=== PATIENT | male | born 1965 | race Caucasian/White ===

== ENCOUNTER 2018-07-07 02:12 | Emergency (ER) | payer SELFPAY ==
[2018-07-07] MEDS ORDERED: LIDOCAINE 1% 20 ML MDV ONE (02:33)
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
--- NOTE | 2018-07-07 02:44 | ER ---
Nurse's Notes [facility] Name: Tariq Preston II Age: 52 yrs Sex: Male : 1965 Arrival Date: 07/07/2018 Time: 02:15 Bed 19 Private MD: Heath López H Diagnosis: Foreign Body removal of the right hand Presentation: 07/07 02:23 Presenting complaint: Patient states: Fish hook stuck in right hand since yesterday tl2 evening, >24 hours ago. Pt unable to remove it himself. Transition of care: patient was not received from another setting of care. Onset of symptoms was July 04, 2018 at 22:00. Risk Assessment: Do you want to hurt yourself or someone else? Patient reports no desire to harm self or others. Initial Sepsis Screen: Does the patient meet any 2 criteria? No. Patient's initial sepsis screen is negative. Does the patient have a suspected source of infection? No. Patient's initial sepsis screen is negative. Care prior to arrival: None. 02:23 Method Of Arrival: Ambulatory tl2 02:23 Acuity: YESENIA 4 tl2 Triage Assessment: 02:24 General: Appears in no apparent distress. comfortable, Behavior is calm, cooperative, tl2 appropriate for age. Pain: Complains of pain in dorsal aspect of proximal phalanx of right thumb. Neuro: Level of Consciousness is awake, alert, obeys commands, Oriented to person, place, time, situation. Cardiovascular: Denies chest pain. Respiratory: Airway is patent Respiratory effort is even, unlabored, Respiratory pattern is regular, symmetrical. GI: No signs and/or symptoms were reported involving the gastrointestinal system. : No signs and/or symptoms were reported regarding the genitourinary system. Injury Description: Foreign body is located dorsal aspect of proximal phalanx of right thumb is fish hook was sustained 1 day ago. Historical: - Allergies: 02:24 No Known Allergies; tl2 - Home Meds: 02:24 None [Active]; tl2 - PMHx: 02:24 None; tl2 - PSHx: 02:24 None; tl2 - Immunization history:: Adult Immunizations up to date, Last tetanus immunization: up to date. - Social history:: Smoking status: Patient/guardian denies using tobacco. - Ebola Screening: : No symptoms or risks identified at this time. Screenin:26 Abuse screen: Denies threats or abuse. Nutritional screening: No deficits noted. tl2 Tuberculosis screening: No symptoms or risk factors identified. Fall Risk None identified. Assessment: 02:24 General: see triage assessment. tl2 02:46 Reassessment: Patient appears in no apparent distress at this time. Patient and/or tl2 family updated on plan of care and expected duration. Pain level reassessed. Patient is alert, oriented x 3, equal unlabored respirations, skin warm/dry/pink. pt verbalized understanding of discharge instructions, need for follow up, prescription usage and wound care. Vital Signs: 02:24 BP 123 / 92; Pulse 111; Resp 18; Temp 97.7(O); Pulse Ox 98% on R/A; Weight 97.52 kg; tl2 Height 6 ft. 2 in. (187.96 cm); Pain 1/10; 02:46 BP 126 / 95; Pulse 100; Resp 18; Pulse Ox 99% on R/A; tl2 02:24 Body Mass Index 27.60 (97.52 kg, 187.96 cm) 2 ED Course: 02:15 Patient arrived in ED. am2 02:16 Heath López DO is Private Physician. am2 02:16 Dick Jensen MD is Attending Physician. tw4 02:17 [facility] jmm 02:17 Dick Jensen MD is Attending Physician. [facility] 02:22 Jane Patino, MELANY is Primary Nurse. tl2 02:24 Triage completed. tl2 02:24 Arm band placed on right wrist. tl2 02:26 Patient has correct armband on for positive identification. Bed in low position. Call 2 light in reach. Side rails up X 1. Adult w/ patient. 02:43 Joseluis Willson MD is Referral Physician. [facility] 02:46 Assist provider with foreign body removal of a fish hook from right hand using 2 alligator clamps, Set up for procedure. Performed by Pranav CAZARES Dressed with gauze bandage, Patient tolerated well. Patient did not have IV access during this emergency room visit. Administered Medications: 02:35 Drug: Lidocaine (1 %) 20 ml Volume: 20 ml; Route: Infiltration; tl2 02:45 Drug: Doxycycline 100 mg Route: PO; tl2 02:49 Follow up: Response: No adverse reaction; Medication administered at discharge. tl2 Outcome: 02:44 Discharge ordered by . licha 02:46 Discharged to home ambulatory, with family. tl2 02:46 Condition: stable 02:46 Discharge instructions given to patient, family, Instructed on discharge instructions, follow up and referral plans. medication usage, wound care, Demonstrated understanding of instructions, follow-up care, medications, wound care, Prescriptions given X 1. 02:50 Patient left the ED. tl2 Signatures: Pranav Vivar PA PA jmm Knox, Taylor, RN RN tl2 Monica Lomax am2 Dick Jensen MD MD tw4
[2018-07-07] MEDS ORDERED: DOXYCYCLINE 100 MG CAP PO ONE (02:51)
== END 2018-07-07 02:50 | disposition home or self-care (01) ==
LOC: ER 02:12
PROC: 0JCJ0ZZ Extirpation of Matter from Right Hand Subcutaneous Tissue and Fascia, Open Approach (ICD-10-PCS; principal; 2018-07-07)
DX: S61.441A Puncture wound with foreign body of right hand, initial encounter (principal); W26.8XXA Contact with other sharp object(s), not elsewhere classified, initial encounter
CPT/HCPCS: 99283

== ENCOUNTER 2018-09-02 13:34 | Emergency (ER) | payer SELFPAY ==
[2018-09-02] MEDS ORDERED: HYDROCODONE/APAP 10/325 TAB ONE (14:03)
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
[2018-09-02] MEDS ORDERED: ONDANSETRON 4 MG (ODT) TAB ONE (15:28)
[2018-09-02] MEDS ORDERED: MORPHINE 4 MG/ML SYR ONE (15:28)
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
== END 2018-09-02 15:41 | disposition home or self-care (01) ==
LOC: ER 13:34
DX: S42.231A 3-part fracture of surgical neck of right humerus, initial encounter for closed fracture (principal); Y04.2XXA Assault by strike against or bumped into by another person, initial encounter; Y92.410 Unspecified street and highway as the place of occurrence of the external cause
CPT/HCPCS: 96372; 99284

== ENCOUNTER 2020-10-01 23:03 | Emergency (ER) | payer SELFPAY ==
--- NOTE | 2020-10-02 01:04 | ER ---
Nurse's Notes [facility] Name: Tariq Preston II Age: 54 yrs Sex: Male : 1965 Arrival Date: 10/01/2020 Time: 23:09 Bed Waiting Private MD: Diagnosis: Fever, unspecified Presentation: 10/01 23:21 Chief complaint: Patient states: headache, body aches and right sided back pain that em started 3-4 days ago, denies fever. Coronavirus screen: Client denies travel out of the [place] in the last 14 days. Ebola Screen: Patient negative for fever greater than or equal to 101.5 degrees Fahrenheit, and additional compatible Ebola Virus Disease symptoms Patient denies exposure to infectious person. Patient denies travel to an Ebola-affected area in the 21 days before illness onset. No symptoms or risks identified at this time. Initial Sepsis Screen: Does the patient meet any 2 criteria? HR > 90 bpm. No. Patient's initial sepsis screen is negative. Does the patient have a suspected source of infection? No. Patient's initial sepsis screen is negative. Risk Assessment: Do you want to hurt yourself or someone else? Patient reports no desire to harm self or others. Onset of symptoms was October 01, 2020. 23:21 Method Of Arrival: Ambulatory em 23:21 Acuity: YESENIA 4 em Historical: - Home Meds: 23:22 None [Active]; em - PMHx: 23:22 None; em - PSHx: 23:22 None; em - Immunization history:: Adult Immunizations not immunized, Client reports having NOT received the Covid vaccine. - Social history:: Smoking status: Patient reports the use of cigarette tobacco products, smokes one-half pack cigarettes per day. Vital Signs: 23:21 BP 119 / 80; Pulse 102; Resp 18; Temp 97.9; Pulse Ox 99% on R/A; Weight 92.99 kg; em Height 6 ft. 2 in. (187.96 cm); Pain 7/10; 23:21 Body Mass Index 26.32 (92.99 kg, 187.96 cm) em ED Course: 23:09 Patient arrived in ED. es 23:22 Triage completed. em 23:22 Arm band placed on. em Administered Medications: No medications were administered Outcome: 10/02 01:03 Discharge ordered by MD. barrios 01:03 Patient left the ED. sr5 Signatures: Kylee Andrew Edgar, RN RN Vladislav Spear RN RN sr5
[2020-10-02 01:39] VITALS: BP 119/80; TEMP 97.9; O2SAT 99
[2020-10-02] MEDS ORDERED: NA CHLORIDE 0.9% 1,000 ML IV ONE (02:39)
[2020-10-02] MEDS ORDERED: ONDANSETRON 4 MG/2 ML VIAL IV ONE (02:39)
[2020-10-02] MEDS ORDERED: MORPHINE 4 MG/ML SYR IV ONE (02:39)
[2020-10-02 02:54] LABS: Absolute Lymphocytes (CBC) 1.9 K/uL (0.7-4.9); Basophils % 1.2 % (0-1.3); Lymphocytes % 31.2 % (15.3-44.8); MPV 8.5 fL (7.6-11.3); RBC Red Blood Cell Count 4.94 M/uL (4.33-5.43)
[2020-10-02 02:55] LABS: Protime INR 0.96
[2020-10-02 03:06] LABS: BUN Blood Urea Nitrogen 13 mg/dL (7-18); Bicarbonate 30 mmol/L (21-32); Creatine Phosphokinase 69 U/L (39-308); Glucose Level 114 mg/dL (74-106); Magnesium 2.2 mg/dL (1.8-2.4); NT PRO-BNP 26 pg/mL (<125); Potassium 3.7 mmol/L (3.5-5.1); Sodium Level 141 mmol/L (136-145); Troponin I < 0.02 ng/mL (0.0-0.045)
[2020-10-02 03:10] LABS: Urine Blood Negative (Negative); Urine Glucose Negative (Negative); Urine Protein Negative (Negative); Urine Specific Gravity >=1.030 (1.005-1.030); Urine pH 5.5 (5.0-7.0)
[2020-10-02] MEDS ORDERED: NA CHLORIDE 0.9% 1,000 ML ONE (03:13)
[2020-10-02 03:14] LABS: CKMB Creatine Kinase MB < 1.0 ng/mL (1.0-3.6)
[2020-10-02] MEDS ORDERED: ONDANSETRON 4 MG/2 ML VIAL ONE (03:14)
[2020-10-02] MEDS ORDERED: MORPHINE 4 MG/ML SYR ONE (03:14)
[2020-10-02 03:26] LABS: Barbiturates NEGATIVE (NEGATIVE); Benzodiazepines NEGATIVE (NEGATIVE); Cocaine NEGATIVE (NEGATIVE); METHAMPHETAM POSITIVE (NEGATIVE); Methadone NEGATIVE (NEGATIVE); Opiates NEGATIVE (NEGATIVE); Phencyclidine NEGATIVE (NEGATIVE); THC Cannibis POSITIVE (NEGATIVE)
--- NOTE | 2020-10-02 07:11 | RAD REPORT ---
EXAM DESCRIPTION: RAD - Chest Pa And Lat (2 Views) - 10/02/2020 2:45 am CLINICAL HISTORY: chest pain COMPARISON: None TECHNIQUE: Frontal and lateral views of the chest were obtained. FINDINGS: The lungs are clear of a suspicious mass or infiltrate. Nipple shadows overlie the each alivia ng base. No significant failure or volume overload finding. There is mild prominence of the interstit ial pattern believed to be baseline. Heart size is normal and central vasculature is within normal limits. No pleural effusion or pneumothorax seen. No acute bony finding noted. No aortic abnormali ty. IMPRESSION: No acute cardiopulmonary process.
--- NOTE | 2020-10-02 12:55 | EKG ---
Test Date: 2020-10-02 Test Time: 02:25:55 Tree Specialist: CRISTEL MEASUREMENT RESULTS: Intervals: Rate: 79 SD: 134 QRSD: 88 QT: 386 QTc: 442 Labelle: P: 32 SD: 134 QRS: -15 T: -14 INTERPRETIVE STATEMENTS: Normal sinus rhythm Voltage criteria for left ventricular hypertrophy Inferior infarct, age undetermined Abnormal ECG No previous ECG available for comparison Electronically Signed On 10-02-20 12:53:42 CDT by Romeo Valencia
== END 2020-10-02 01:03 | disposition home or self-care (01) ==
LOC: ER 23:03
DX: R07.9 Chest pain, unspecified (principal); F19.10 Other psychoactive substance abuse, uncomplicated; F17.210 Nicotine dependence, cigarettes, uncomplicated
CPT/HCPCS: 36415; 71046; 80048; 80307; 81003; 82550; 82553; 83735; 83880; 84484; 85025; 85610; 85730; 93005; 99281; J2405; J7030

== ENCOUNTER 2022-05-31 03:30 | Emergency (ER) | payer OTHER, SELFPAY ==
--- OUTSIDE RECORDS SUMMARY | 2022-05-31 03:35 | XMS REPORT | Continuity of Care Document ---
:1965 Author Organization [facility] t Address [address] [place] [address] Care Team Providers Name Role Phone Sara Ludwig Primary Care Physician Doctor Unassigned, [place] Attending Clinician Unavailable Evelyn Carrizales Attending Clinician Unavailable Sara Ludwig Attending Clinician Lab, Ang - Db Attending Clinician Unavailable SARA ONTIVEROS Attending Clinician Unavailable VICKIE KEATING Attending Clinician Unavailable TYRONE SHEPARD Attending Clinician Unavailable NUSRAT FRIEND Attending Clinician Unavailable Payers Payer Name Policy Type Policy Number Effective Date Expiration Date S ource Problems Condition Condition Condition Status Onset Resolution Last Treating Co mments Source Name Details Category Date Date Treatment Clinician Date No known No known Disease Unive rs active active ity of problems problems [facility] Allergies, Adverse Reactions, Alerts Allergy Allergy Status Severity Reaction(s) Onset Inactive Treating Comm ents Source Name Type Date Date Clinician NO KNOWN Drug Active Univers ALLERGIE Class ity of S [facility] Social History Social Habit Start Date Stop Date Quantity Comments Source Exposure to 2022-04-05 2022-04-15 Not sure [facility] SARS-CoV-2 00:00:00 13:14:00 [facility] (event) [place] Tobacco use and 2022-04-10 2022-04-10 Smokeless tobacco Un iversity of exposure 00:00:00 00:00:00 non-user [facility] Alcohol intake 2022-04-10 2022-04-10 Lifetime University of 00:00:00 00:00:00 non-drinker [place] [facility] (finding) Branch History of 2021-11-01 Cigarette Smoker Universi ty of tobacco use 00:00:00 [facility] Tobacco Comment 2021-10-24 2021-10-24 Patient trying to Un iversity of 00:00:00 00:00:00 quit, currently [place] [facility] ical smokes 1 Branch cigarette/ day. Sex Ass[birth year] Universit y of 00:00:00 00:00:00 [facility] Smoking Status Start Date Stop Date Source Ex-smoker 2022-04-10 00:00:00 2022-04-10 00:00:00 Universi ty of [facility] Smokes tobacco daily 2021-10-24 00:00:00 Univers ity of [facility] Medications Ordered Filled Start Stop Current Ordering Indication Dosage Frequency Signature Comments Components Source Medication Medication Date Date Medication? Clinician (SIG) Name Name ergocalcife 0 Yes [id number] Take 1 Univers rol, 1-11 capsule by ity of vitamin d2, 00:00: mouth [place] 1,250 mcg 00 weekly. Medical (50,000 Branch unit) capsule ergocalcife 2022-0 Yes [id number] Take 1 Univers rol, 1-11 capsule by ity of vitamin d2, 00:00: mouth [place] 1,250 mcg 00 weekly. Medical (50,000 Branch unit) capsule ergocalcife 2022-0 Yes [id number] Take 1 Univers rol, 1-11 capsule by ity of vitamin d2, 00:00: mouth [place] 1,250 mcg 00 weekly. Medical (50,000 Branch unit) capsule ergocalcife 2022-0 Yes [id number] Take 1 Univers rol, 1-11 capsule by ity of vitamin d2, 00:00: mouth [place] 1,250 mcg 00 weekly. Medical (50,000 Branch unit) capsule tiZANidine Yes [id number] 4mg Take 1 Univers 4 mg tablet 7-21 tablet by ity of 00:00: mouth 3 00 (three) Medical times Branch daily as needed for Pain (scale 7-10). naproxen Yes [id number] 500mg Take 1 U nivers 500 mg 7-21 tablet by ity of tablet 00:00: mouth 2 00 (two) Medical times Branch daily as needed for Pain (scale 4-6) (use spraignly due to side effects). tiZANidine 2022-0 Yes [id number] 4mg Take 1 Univers 4 mg tablet 7-21 tablet by ity of 00:00: mouth 3 (three) Medical times Branch daily as needed for Pain (scale 7-10). naproxen 2022-0 Yes [id number] 500mg Take 1 U nivers 500 mg 7-21 tablet by ity of tablet 00:00: mouth (two) Medical times Branch daily as needed for Pain (scale 4-6) (use spraignly due to side effects). tiZANidine 2-0 Yes [id number] 4mg Take 1 Univers 4 mg tablet 7-21 tablet by ity of 00:00: mouth (three) Medical times Branch daily as needed for Pain (scale 7-10). naproxen 2022-0 Yes [id number] 500mg Take 1 U nivers 500 mg 7-21 tablet by ity of tablet 00:00: mouth (two) Medical times Branch daily as needed for Pain (scale 4-6) (use spraignly due to side effects). tiZANidine 2-0 Yes [id number] 4mg Take 1 Univers 4 mg tablet 7-21 tablet by ity of 00:00: mouth (three) Medical times Branch daily as needed for Pain (scale 7-10). naproxen 2022-0 Yes [id number] 500mg Take 1 U nivers 500 mg 7-21 tablet by ity of tablet 00:00: mouth (two) Medical times Branch daily as needed for Pain (scale 4-6) (use spraignly due to side effects). tiZANidine 2-0 Yes [id number] 4mg Take 1 Univers 4 mg tablet 7-21 tablet by ity of 00:00: mouth 3 (three) Medical times Branch daily as needed for Pain (scale 7-10). naproxen 2022-0 Yes [id number] 500mg Take 1 U nivers 500 mg 7-21 tablet by ity of tablet 00:00: mouth (two) Medical times Branch daily as needed for Pain (scale 4-6) (use spraignly due to side effects). tiZANidine 2021-0 Yes [id number] 4mg Take 1 Univers 4 mg tablet 7-21 tablet by ity of 00:00: mouth 3 (three) Medical times Branch daily as needed for Pain (scale 7-10). naproxen 2021-0 Yes [id number] 500mg Take 1 U nivers 500 mg 7-21 tablet by ity of tablet 00:00: mouth 2 (two) Medical times Branch daily as needed for Pain (scale 4-6) (use spraignly due to side effects). tiZANidine 2021-0 Yes [id number] 4mg Take 1 Univers 4 mg tablet 7-21 tablet by ity of 00:00: mouth 3 (three) Medical times Branch daily as needed for Pain (scale 7-10). naproxen 2021-0 Yes [id number] 500mg Take 1 U nivers 500 mg 7-21 tablet by ity of tablet 00:00: mouth 2 (two) Medical times Branch daily as needed for Pain (scale 4-6) (use spraignly due to side effects). tiZANidine 2021-0 Yes [id number] 4mg Take 1 Univers 4 mg tablet 7-21 tablet by ity of 00:00: mouth 3 (three) Medical times Branch daily as needed for Pain (scale 7-10). naproxen 2021-0 Yes [id number] 500mg Take 1 U nivers 500 mg 7-21 tablet by ity of tablet 00:00: mouth 2 (two) Medical times Branch daily as needed for Pain (scale 4-6) (use spraignly due to side effects). methylPREDN 0 2021- No [id number] Take by Univers ISolone 4 10-24 07-28 mouth ity of mg tablets 00:00: 04:59 SEE-INSTRU [place] 00 :00 CTIONS for Medical 6 days. Branch follow package directions Vital Signs Vital Name Observation Time Observation Value Comments Source Systolic blood 2022-04-10 20:30:00 135 mm[Hg] Univer sity of pressure [facility] Diastolic blood 2022-04-10 20:30:00 88 mm[Hg] Unive rsity of [facility] Heart rate 2022-04-10 20:30:00 88 /min Universi ty of [place] [facility] [place] Body temperature 2022-04-10 20:30:00 36.78 Angelika [facility] ersity of [place] [facility] [place] Respiratory rate 2022-04-10 20:30:00 20 /min Univ ersity of [place] [facility] [place] Body height 2022-04-10 20:30:00 188 cm Universi ty of [place] [facility] [place] Body weight 2022-04-10 20:30:00 105.87 kg Universi ty of [place] [facility] BMI 2022-04-10 20:30:00 29.97 kg/m2 Universi ty of [facility] Oxygen saturation in 2022-04-10 20:30:00 96 /min University of Arterial blood by [facility] Pulse oximetry Branch Respiratory rate 2021-10-24 16:11:00 18 /min [facility] ersity of [place] [facility] [place] Body height 2021-10-24 16:11:00 188 cm Universi ty of [place] [facility] [place] Body weight 2021-10-24 16:11:00 98.657 kg Universi ty of [place] [facility] BMI 2021-10-24 16:11:00 27.93 kg/m2 Universi ty of [place] [facility] [place] Oxygen saturation in 2021-10-24 16:11:00 97 /min University of Arterial blood by [facility] Pulse oximetry Branch Systolic blood 2021-10-24 16:11:00 123 mm[Hg] Univer sity of pressure [facility] Diastolic blood 2021-10-24 16:11:00 85 mm[Hg] Unive rsity of pressure [facility] Heart rate 2021-10-24 16:11:00 75 /min Universi ty of [place] [facility] [place] Body temperature 2021-10-24 16:11:[address] [facility] Procedures Procedure Date / Time Performed Performing Clinician Sourc e REFERRAL- 2022-05-06 06:01:00 Doctor Unassigned, No [facility] REQUEST/RESPONSE Name [facility] Branch COMP. METABOLIC PANEL 2022-04-15 19:35:00 Sara Ontiveros [facility] ([id number]) Medical Branch CBC WITH DIFF 2022-04-15 19:35:00 Sara Ontiveros [place] [facility] Encounters Start End Encounter Admission Attending Care Care Encounter Source Date/Time Date/Time Type Type Clinicians Facility Department ID 2022-05-06 2022-05-06 Orders Doctor SHANE [id number] Univers 00:00:00 00:00:00 Only Unassigned, LAURA 350.1.13.10 ity of [place] [facility] 4.2.7.2.686 Alexander as [id number] [facility] 009 [place] 2022-04-30 2022-04-30 Telephone FATEMEH Carrizales 1.2.840.114 [id number] Univers 00:00:00 00:00:00 Evelyn BARTONY 350.1.13.10 [place] [id number] [facility] 086 [place] 2022-04-25 2022-04-25 Telephone Rama [facility] [id number] Univers 00:00:00 00:00:00 Sara HEALTH 350.1.13.10 it y of [place] 4.2.7.2.686 Alexander as WOODY?BLEA [id number] [facility] 044 [place] MEDICAL OFFICE [facility] 2022-04-15 2022-04-15 Laboratory Engineer Lab, Ang - Db [facility] 1.2.840.1 [id number] Univers 13:15:00 13:30:02 Visit Sara Ontiveros HEALTH 350.1.13.10 ity of [place] 4.2.7.2.686 Alexander as WOODY?BLEA [id number] [facility] [address] [facility] OFFICE [facility] 2022-04-15 2022-04-15 Outpatient R RAMA [facility] [id number] Univers 13:15:00 13:15:00 SARA ity [facility] 2022-04-10 2022-04-10 [facility] [id number] Univers 14:30:00 15:28:58 SARA ity [facility] 2022-04-10 2022-04-10 [facility] [id number] Univers 14:30:00 15:28:58 Visit Sara HEALTH 350.1.13.10 it y of [place] 4.2.7.2.686 Alexander as WOODY?BLEA [id number] [facility] 044 [place] MEDICAL OFFICE BUILDING 2021-12-10 2021-12-10 Outpatient R ZURI [facility] [id number] Univers 08:45:00 08:45:00 VICKIE jerzy [facility] 2021-11-29 2021-11-29 Outpatient R DEVYN [facility] [id number] Univers 12:30:00 12:30:00 TYRONE jerzy [facility] 2021-11-27 2021-11-27 Outpatient R PHUC [facility] [id number] Univers 11:30:00 11:30:00 ity [facility] 2021-11-19 2021-11-19 Outpatient R PHUC [facility] [id number] Univers 14:00:00 [facility]00[facility] 2021-11-05 Outpatient R PHUC [facility] [id number] Univers 14:30:00 [facility]:30:[facility] 2021-10-24 2021-10-24 [facility] [id number] Univers 13:00:00 23:59:00 SARA [facility] 2021-10-24 2021-10-24 Laboratory Engineer Lab, Ang - [facility] 1.2.840.1 [id number] Univers 11:45:00 12:00:00 Visit Sara Ontiveros 350.1.13.10 ity [facility] 4.2.7.2.686 Alexander as WOODY?BLEA [id number] Sd peewee MOODY [address] [place] [address] MEDICAL OFFICE BUILDING 2021-10-24 2021-10-24 [facility] [id number] Univers 11:00:00 11:44:18 SARA [facility] 2021-10-24 2021-10-24 Office [facility] [id number] Univers 11:00:00 11:44:18 Visit Sara Nubee 350.1.13.10 it y of [place] 4.2.7.2.686 Alexander as WOODY?BLEA [id number] Sd peewee [address] OFFICE [facility] 2021-10-17 2021-10-17 Outpatient R RAMA [facility] [id number] Univers 11:30:00 11:30:00 SARA itjerzy [facility] 2021-10-15 2021-10-15 Outpatient R FRIENDNUSRAT [facility] [id number] Univers 16:30:00 16:30:00 ity [facility] 2021-10-15 2021-10-15 Outpatient R FRIENDNUSRAT [facility] [id number] Univers 16:30:00 16:30:00 [facility] 2021-10-11 2021-10-11 Telephone [facility] [id number] Univers 00:00:00 00:00:00 Sara HEALTH 350.1.13.10 it y of [place] 4.2.7.2.686 Alexander as WOODY?BLEA [id number] [address] OFFICE [facility] 2021-10-09 2021-10-09 Telephone [facility] [id number] Univers 00:00:00 00:00:00 Sara HEALTH 350.1.13.10 it y of [place] 4.2.7.2.686 Alexander as WOODY?BLEA [id number] [address] OFFICE [facility] 2021-10-03 2021-10-03 Office [facility] [id number] Univers 10:30:00 11:43:54 Visit Sara HEALTH 350.1.13.10 it y of [place] 4.2.7.2.686 Alexander as WOODY?BLEA [id number] [address] OFFICE [facility] 2021-10-03 2021-10-03 Outpatient R RAMA [facility] [id number] [facility] 10:30:00 11:43:54 SARASKY block [facility] 2021-10-03 2021-10-03 Outpatient Sayda ONTIVEROS [facility] [id number] [facility] 10:30:00 11:43:54 SARA ity of [facility] 2021-10-03 2021-10-03 Telephone Rama [facility] [id number] Univers 00:00:00 00:00:00 Sara LOMELI 350.1.13.10 it jerzy montano [place] 4.2.7.2.686 Alexander as WOODY?BLEA [id number] [address] MEDICAL OFFICE BUILDING Results Test Description Test Time Test Comments Results Result Comments Source CBC WITH DIFF 2022-04-15 23:03:33 Test Item Value Reference Range Interpretation Comme nts WBC (test code = 6690-2) See_Comment [A utomated message] The system which generated this result transmitted ref erence range: 4.20 - 10.70 10*3/?L . The reference range was not u sed to interpret this result as normal/abnormal. RBC (test code = 789-8) See_Comment [Au tomated message] The system which generated this result transmitted ref erence range: 4.26 - 5.52 10*6/?L. The reference range was not u sed to interpret this result as normal/abnormal. HGB (test code = 718-7) 16.2 g/dL 12.2-16.4 HCT (test code = 4544-3) 47.0 % 38.4-49.3 MCV (test code = 787-2) 89.4 fL 81.7-95.6 MCH (test code = 785-6) 30.8 pg 26.1-32.7 MCHC (test code = 786-4) 34.5 g/dL 31.2-35.0 RDW-SD (test code = 42.0 fL 38.5-51.6 77942-4) RDW-CV (test code = 12.9 % 12.1-15.4 788-0) PLT (test code = 777-3) See_Comment [Au tomated message] The system which generated this result transmitted ref erence range: 150 - 328 10*3/?L. The reference range was not u sed to interpret this result as normal/abnormal. MPV (test code = 14305-5) 10.5 fL 9.8-13.0 NRBC/100 WBC (test code = See_Comment [ Automated message] The system [id number]) which generated this result transmitted ref erence range: 0.0 - 10.0 /100 WBC s. The reference range was not u sed to interpret this result as normal/abnormal. NRBC x10^3 (test code = See_Comment [Au tomated message] The system [id number]) which generated this result transmitted ref erence range: 10*3/?L. The re ference range was not used to int erpret this result as normal/abnor mal. GRAN MAT (NEUT) % (test 50.3 % code = 770-8) IMM GRAN % (test code = 0.20 % 7883188430) LYMPH % (test code = 35.8 % 736-9) MONO % (test code = 8.4 % 5905-5) EOS % (test code = 713-8) 3.7 % BASO % (test code = 1.6 % 706-2) GRAN MAT x10^3(ANC) (test 2.89 10*3/uL 1.99-6.95 code = 7857987062) IMM GRAN x10^3 (test code 0.00-0.06 = 2377523940) LYMPH x10^3 (test code = 2.05 10*3/uL 1.09-3.23 731-0) MONO x10^3 (test code = 0.48 10*3/uL 0.36-1.02 742-7) EOS x10^3 (test code = 0.21 10*3/uL 0.06-0.53 711-2) BASO x10^3 (test code = 0.09 10*3/uL 0.01-0.09 704-7) [id number]-15 22:48:08 Test Item Value Reference Range Interpretation Comments NA (test code = 138 mmol/L 135-145 8202240917) K (test code = 4.6 mmol/L 3.5-5.0 9843279484) CL (test code = 104 mmol/L 98-108 7252055420) CO2 TOTAL (test code = 27 mmol/L 23-31 5792683950) AGAP (test code = 2-16 3805201309) BUN (test code = 11 mg/dL 7-23 1754185214) GLUCOSE (test code = 97 mg/dL 70-110 5850164544) CREATININE (test code = 1.07 mg/dL 0.60-1.25 9688716298) TOTAL BILI (test code = 0.6 mg/dL 0.1-1.3 8011018183) CALCIUM (test code = 8.9 mg/dL 8.6-10.6 3438412018) T PROTEIN (test code = 7.5 g/dL 6.3-8.2 1607691125) ALBUMIN (test code = 4.5 g/dL 3.5-5.0 9650455455) ALK PHOS (test code = 107 U/L 34-122 4136982306) ALTv (test code = 55 U/L 5-50 H 1742-6) AST(SGOT) (test code = 42 U/L 13-40 H 9653092536) eGFR (test code = mL/min/1.73m2 6647595048) MAIKOL (test code = MAIKOL) Association of Glomerular Filtration Rate (GFR) and Staging of Kidney Disease* + --+ --+ ------+| GFR (mL/min/1.73 m2) ?| With Kidney Damage ?| ?Without Kidney Damage+ --------+ --------+ +| ?>90 ?| ?Stage one ?| ? Normal ?+ ---+ ---+ -------+| ?60-89 ?| ?Stage two ?| ? Decreased GFR ? + --+ --+ ------+| ?30-59 ?| ?Stage three ?| ? Stage three ? + --+ --+ ------+| ?15-29 ?| ?Stage four ? | ? Stage four ?+ ---+ ---+ -------+| ?<15 (or dialysis) ? ?| ?Stage five ? | ? Stage five ?+ ---+ ---+ -------+ *Each stage assumes the associated GFR level has been in effect for at least three months. ?Stages 1 to 5, with or without kidney disease, indicate chronic kidney disease. Notes: Determination of stages one and two (with eGFR >59mL/min/1.73 m2) requires estimation of kidney damage for at least three months as defined by structural or functional abnormalities of the kidney, manifested by either:Pathological abnormalities or Markers of kidney damage (including abnormalities in the composition of the blood or urine or abnormalities in imaging tests). Lab Interpretation Abnormal (test code = 54167-4) [facility] [id number] 07:58:05 Test Item Value Reference Range Interpretation Comments CHOLESTEROL (test 214 MG/DL <200 H code = 2210) TRIGLYCERIDES (test 123 MG/DL <150 code = 2232) HDL CHOLESTEROL (test 34 MG/DL >39 L code = 2220) CALC LDL CHOL (test 155 MG/DL <100 H NOTE: C ALCULATED LDL code = 2237) IS BASED ON ROSY-DENISE METHOD WHICHINCLUDES ADJUSTABLE TRIGLYCERIDE:VL DL CHOLESTEROL RAT IO.THIS FACTOR VARIES B Y MEASURED TRIGLY CERIDE AND NON-HDLCHOL ESTEROL CONCENTRATIONS WITH INCREASED CALCU LATED LDL SEENIN HIGH ER TRIGLYCERIDE OR LOWER NON-HDL SPECIME NS. FOR MOREINFORMATION , SEE CLIENT ANNOUNCE MENT AT [email or web address] RISK RATIO LDL/HDL 4.56 RATIO <3.55 H (test code = 2238) COMPREHENSIVE METABOLIC [id number] 07:58:05 Test Item Value Reference Range Interpretation Comments GLUCOSE (test code = 93 MG/DL 70-99 2216) BUN (test code = 13 MG/DL 6-20 2207) CREATININE (test 1.08 MG/DL 0.80-1.40 code = 2214) eGFR (2020 CKD-EPI) 82 ML/MIN/1.73 >60 (test code = 04280) CALC BUN/CREAT (test 12 RATIO 6-28 code = 2235) SODIUM (test code = 141 MEQ/L 743-630 4421) POTASSIUM (test code 4.1 MEQ/L 3.5-5.4 = 2227) CHLORIDE (test code 105 MEQ/L 95-107 = 2214) CARBON DIOXIDE (test 22 MEQ/L 19-31 code = 2206) CALCIUM (test code = 9.1 MG/DL 8.5-10.5 2208) PROTEIN, TOTAL (test 7.0 G/DL 6.1-8.3 code = 2229) ALBUMIN (test code = 4.0 G/DL 3.5-5.2 2200) CALC GLOBULIN (test 3.0 G/DL 1.9-3.7 code = 2240) CALC A/G RATIO (test 1.3 RATIO 1.0-2.6 code = 2234) BILIRUBIN, TOTAL 0.4 MG/DL See_Comment [Automated message] (test code = 2207) The syste m which generated this result transmit madelyn reference range : <=1.2. The refe rence range was not u sed to interpret th is result as normal/abnormal . ALKALINE PHOSPHATASE 85 U/L 40-121 (test code = 2203) AST (test code = 15 U/L 9-50 2217) ALT (test code = 20 U/L 5-50 2218) [id number] 06:51:08 Test Item Value Reference Range Interpretation Comments RPR RESULT (test code = NON-REACTIVE NON-REACTIVE 3501) RPR TITER (test code = 3500) NOT INDIC. TITER NOT INDIC. HIV 1/2 4TH GEN, RFLX [id number] 05:47:42 Test Item Value Reference Range Interpretation Comments HIV 1/2 4TH GEN, RFLX CONF (test NON-REACTIVE NON-REACTIVE code = 3514) HEPATITIS PANEL, [id number] 05:47:42 Test Item Value Reference Range Interpretation Comments HEPATITIS A IgM (test NON-REACTIVE NON-REACTIVE code = 92645) HEPATITIS B CORE IgM NON-REACTIVE NON-REACTIVE (test code = 4644) HEPATITIS B SURF AG NON-REACTIVE NON-REACTIVE (test code = 2739) HEPATITIS C ANTIBODY NON-REACTIVE NON-REACTIVE (test code = 4675) INTERPRETATION (NOTE) Hepatitis A HEPATITIS A: (test serology shows no code = 2552) evidence of acu te hepatitis A. INTERPRETATION (NOTE) Hepatitis B HEPATITIS B: (test serology shows no code = 93254) evidence of ac [place] hepatitis B and no indication of exposure to hepatitis B vir us in the previous si xto eight months. INTERPRETATION (NOTE) Hepatitis C HEPATITIS C: (test serology shows no code = 58202) evidence of ex posure to hepatitisC v irus at this time. I t can take up to 12 m onths after exposure tothe hepatitis C vir us for antibodies to become detectab le in the blood in ce rtain patients. UNLES S OTHERWISE INDIC ATED, ALL TESTING PERFORMED [facility], [place] [facility] [place] [address] MANDIE OAKLEY DIRECTOR: Nubia WILEYIA NUMBER [id number] [place] [id number] CBC W/AUTO DIFF WITH [id number] 03:42:47 Test Item Value Reference Range Interpretation Comments WBC (test code = 5.9 K/UL 3.5-11.0 1001) RBC (test code = 5.20 M/UL 4.50-6.10 1002) HEMOGLOBIN (test code 15.9 G/DL 13.5-17.0 = 1003) HEMATOCRIT (test code 45.1 % 40.0-51.0 = 1004) MCV (test code = 86.7 fL 80.0-99.0 1005) MCH (test code = 30.6 PG 25.0-33.0 1006) MCHC (test code = 35.3 G/DL 31.0-36.0 1007) RDW (test code = 13.0 % 11.5-15.0 1038) NEUTROPHILS (test 46.3 % code = 1008) LYMPHOCYTES (test 40.4 % code = 1010) MONOCYTES (test code 7.7 % = 1011) EOSINOPHILS (test 4.1 % code = 1012) BASOPHILS (test code 1.2 % = 1013) IMMATURE GRANULOCYTES 0.3 % (test code = 1036) NUCLEATED RBCS (test 0.0 /100 WBC'S See_Comment [Aut omated code = 1065) message] The sy stem which generated this result transmitted reference range : 0.0. The refere nce range was not u sed to interpret th is result as normal/abnormal . PLATELET COUNT (test 296 K/UL 130-400 code = 1015) ABSOLUTE NEUTROPHILS 2.71 K/UL 1.50-7.50 (test code = 1066) ABSOLUTE LYMPHOCYTES 2.37 K/UL 1.00-4.00 (test code = 1067) ABSOLUTE MONOCYTES 0.45 K/UL 0.20-1.00 (test code = 1068) ABSOLUTE EOSINOPHILS 0.24 K/UL 0.00-0.50 (test code = 1040) ABSOLUTE BASOPHILS 0.07 K/UL 0.00-0.20 (test code = 1069) ABS IMMATURE 0.02 K/UL 0.00-0.10 GRANULOCYTES (test code = 1020) ABS NUCLEATED RBCS 0.00 K/UL 0.00-0.11 (test code = 00299)"
--- NOTE | 2022-05-31 05:20 | EDPHYS ---
Physician Documentation [facility] Name: Tariq Preston II Age: 56 yrs Sex: Male : 1965 Arrival Date: 05/31/2022 Time: 03:34 Bed 8 Private MD: ED Physician Ari Hayden HPI: 05/31 03:58 This 56 yrs old Male presents to ER via Ambulatory with complaints of Foreign bs3 Body In Throat, Flank Pain. 03:58 56yo m states he has throat discomfort worse when laying flat. It started 5 days ago bs3 when he fell asleep with a dip pellet in his throat and he feels like he swallowed it. He thinks it sometimes goes down and then comes up, it causes him to have coughing fits. Denies fever chills, nausea, or vomiting. He does note that he had a choking/coughing fit tonight adn thinks he broke one of his ribs on the left. . Historical: - Allergies: 03:40 No Known Allergies; lg3 - Home Meds: 03:40 None [Active]; lg3 - PMHx: 03:40 None; lg3 - PSHx: 03:40 None; lg3 - Immunization history:: Adult Immunizations up to date, Client reports receiving the 2nd dose of the Covid vaccine, Flu vaccine is not up to date. - Social history:: Smoking status: Reported history of juuling and/or vaping. Patient/guardian denies using alcohol, street drugs. ROS: 03:58 Constitutional: Negative for fever, chills bs3 03:58 All other systems are negative. Exam: 03:58 Constitutional: This is a well developed, well nourished patient who is awake, alert, bs3 and in no acute distress. Head/Face: Normocephalic, atraumatic. Eyes: Pupils equal round and reactive to light, extra-ocular motions intact. Lids and lashes normal. ENT: mmm, no posterior phyarngeal erythema Neck: Trachea midline, no thyromegaly, no neck stiffness Chest/axilla: Normal chest wall appearance and motion. tender on left side of chest, no crepitus Cardiovascular: Regular rate and rhythm with a normal S1 and S2. symmetric pulses in upper extremities Respiratory: Lungs have equal breath sounds bilaterally, clear to auscultation, no respiratory distress Abdomen/GI: Soft, non-tender, no rebound or guarding MS/ Extremity: Pulses equal, no cyanosis. Neurovascular intact. Full, normal range of motion. Neuro: Awake and alert, GCS 15, oriented to person, place, time, and situation. Cranial nerves II-XII grossly intact. Motor strength 5/5 in all extremities. Sensory grossly intact. Vital Signs: 03:37 BP 144 / 98; Pulse 82; Resp 17 S; Temp 97.6; Pulse Ox 99% on R/A; Weight 104.33 kg; lg3 Height 6 ft. 2 in. (187.96 cm) (R); Pain 6/10; 04:55 BP 126 / 96; Pulse 73; Resp 19; Pulse Ox 95% on R/A; kd3 03:37 Body Mass Index 29.53 (104.33 kg, 187.96 cm) lg3 MDM: 03:49 Patient medically screened. bs3 03:58 Differential diagnosis: possible esophageal or tracheal fb, but pt is well appearing bs3 here, no coughing, no resp distress, possible rib fx, possible irritation from soemthing else causing coughing, will do ct soft tissue neck to eval for fb, will get xr to r/o pneumothorax and large rib fracture. will observe. 05:18 Data reviewed: vital signs, nurses notes. ED course: pt with non diagnostic workup, ct bs3 reviewed by me negative for obvious fb, xr neg for pneumothorax as inter by myself. Advised ent f/u. 05:20 ED course: per radiology no acute pathology on ct. bs3 05/31 03:49 Order name: Chest Pa And Lat (2 Views) XRAY bs3 05/31 04:06 Order name: Soft Tissue Neck Wo Contr EDMS Administered Medications: No medications were administered Disposition Summary: 05/31/22 05:19 Discharge Ordered Location: Home bs3 Problem: new bs3 Symptoms: are resolved bs3 Condition: Stable bs3 Diagnosis - Pain in throat bs3 Followup: bs3 - With: Lily Gonzalez MD - When: 2 - 3 days - Reason: Recheck today's complaints Discharge Instructions: - Discharge Summary Sheet bs3 - Sore Throat, [id number] bs3 Forms: - Medication Reconciliation Form bs3 - Thank You Letter bs3 - Antibiotic Education bs3 - Prescription Opioid Use bs3 Signatures: Dispatcher [employer] EDMS Otilia Barajas, RN RN lg3 Ari Hayden MD MD bs3 Corrections: (The following items were deleted from the chart) 04:06 03:57 Soft Tissue Neck W/Contr+CT.RAD.BRZ ordered. EDMS EDMS
--- NOTE | 2022-05-31 05:20 | ER ---
Nurse's Notes [facility] Name: Tariq Preston II Age: 56 yrs Sex: Male : 1965 Arrival Date: 05/31/2022 Time: 03:34 Bed 8 Private MD: Diagnosis: Pain in throat Presentation: 05/31 03:37 Chief complaint: Patient states: about 4-5 days ago i fell asleep with dip in my mouth lg3 and i inhaled it and its stuck in my throat. now i have a cough that wont go away. im coughing so hard that now my ribs hurt. Coronavirus screen: Client denies travel out of the [place] in the last 14 days. At this time, the client does not indicate any symptoms associated with coronavirus-19. Ebola Screen: No symptoms or risks identified at this time. Initial Sepsis Screen: Does the patient meet any 2 criteria? No. Patient's initial sepsis screen is negative. Does the patient have a suspected source of infection? No. Patient's initial sepsis screen is negative. Risk Assessment: Do you want to hurt yourself or someone else? Patient reports no desire to harm self or others. Onset of symptoms is unknown. 03:37 Method Of Arrival: Ambulatory lg3 03:37 Acuity: YESENIA 3 lg3 Triage Assessment: 03:40 General: Appears in no apparent distress. Behavior is calm, cooperative. Pain: lg3 Complains of pain in left rib area. EENT: No deficits noted. No signs and/or symptoms were reported regarding the EENT system. Neuro: No deficits noted. Heard Agitation-Sedation Scale (RASS): Level of Consciousness is awake, alert, obeys commands, Oriented to person, place, time, situation. Cardiovascular: No deficits noted. Denies chest pain, Capillary refill < 3 seconds Clubbing of nail beds is absent JVD is absent Patient's skin is warm and dry. Respiratory: No deficits noted. Airway is patent Respiratory effort is even, unlabored, Respiratory pattern is regular, symmetrical. GI: No deficits noted. No signs and/or symptoms were reported involving the gastrointestinal system. : No deficits noted. No signs and/or symptoms were reported regarding the genitourinary system. Derm: No deficits noted. No signs and/or symptoms reported regarding the dermatologic system. Skin is intact, is healthy with good turgor, Skin is dry, Skin is normal. Musculoskeletal: No deficits noted. No signs and/or symptoms reported regarding the musculoskeletal system. Circulation, motion, and sensation intact. Range of motion: intact in all extremities. Historical: - Allergies: 03:40 No Known Allergies; lg3 - Home Meds: 03:40 None [Active]; lg3 - PMHx: 03:40 None; lg3 - PSHx: 03:40 None; lg3 - Immunization history:: Adult Immunizations up to date, Client reports receiving the 2nd dose of the Covid vaccine, Flu vaccine is not up to date. - Social history:: Smoking status: Reported history of juuling and/or vaping. Patient/guardian denies using alcohol, street drugs. Screenin:56 [facility] ED Fall Risk Assessment (Adult) History of falling in the last 3 months, kd3 including since admission No falls in past 3 months (0 pts) Confusion or Disorientation No (0 pts) Intoxicated or Sedated No (0 pts) Impaired Gait No (0 pts) Mobility Assist Device Used No (0 pt) Altered Elimination No (0 pt) Score/Fall Risk Level 0 - 2 = Low Risk Maintained a safe environment. Abuse screen: Denies threats or abuse. Denies injuries from another. Nutritional screening: No deficits noted. Tuberculosis screening: No symptoms or risk factors identified. Assessment: 03:40 General: Appears in no apparent distress. Behavior is calm, cooperative. kd3 03:40 Neuro: Level of Consciousness is awake, alert, obeys commands, Oriented to person, kd3 place, time, situation. Cardiovascular: Patient's skin is warm and dry. Respiratory: Airway is patent Trachea midline Respiratory effort is even, unlabored, Respiratory pattern is regular, symmetrical. 04:53 Reassessment: pt stated that when he lays flat, he has a coughing episode. pt bed kd3 positioned flat to attempt to re create symptoms described at home. Unsuccessful attempt to recreate symptoms. Vital Signs: 03:37 BP 144 / 98; Pulse 82; Resp 17 S; Temp 97.6; Pulse Ox 99% on R/A; Weight 104.33 kg; lg3 Height 6 ft. 2 in. (187.96 cm) (R); Pain 6/10; 04:55 BP 126 / 96; Pulse 73; Resp 19; Pulse Ox 95% on R/A; kd3 03:37 Body Mass Index 29.53 (104.33 kg, 187.96 cm) lg3 ED Course: 03:34 Patient arrived in ED. ja2 03:40 Triage completed. lg3 03:40 Arm band placed on left wrist. lg3 03:49 Ari Hayden MD is Attending Physician. bs3 04:37 Soft Tissue Neck Wo Contr In Process Unspecified. EDMS 04:42 Chest Pa And Lat (2 Views) XRAY In Process Unspecified. EDMS 04:53 Sadia Campbell, RN is Primary Nurse. kd3 04:55 Patient has correct armband on for positive identification. kd3 05:19 Lily Gonzalez MD is Referral Physician. bs3 05:21 No provider procedures requiring assistance completed. Patient did not have IV access kd3 during this emergency room visit. Administered Medications: No medications were administered Medication: 04:56 VIS not applicable for this client. kd3 Outcome: 05:19 Discharge ordered by . bs3 05:21 Discharged to home ambulatory. kd3 05:21 Condition: stable 05:21 Discharge instructions given to patient, family, Instructed on discharge instructions, follow up and referral plans. Demonstrated understanding of instructions, follow-up care. 05:22 Patient left the ED. kd3 Signatures: Dispatcher [employer] Otilia Johnson, RN RN lg3 Elicia Preston Sadia Campbell, MELANY RN kd3 Ari Hayden MD MD bs3
[2022-05-31 05:26] VITALS: TEMP 97.6
[2022-05-31 05:28] VITALS: BP 126/96; O2SAT 95
--- NOTE | 2022-06-01 18:12 | RAD REPORT ---
EXAM DESCRIPTION: RAD - Chest Pa And Lat (2 Views) - 05/31/2022 4:40 am CLINICAL HISTORY: The patient is 56 years old and is Male; PAIN TECHNIQUE: Frontal and lateral views of the chest. COMPARISON: No relevant prior studies available. FINDINGS: Lungs: Unremarkable. No consolidation. Pleural space: Unremarkable. No pneumothorax. Heart: Unremarkable. Mediastinum: Unremarkable. Bones/joints: Disc space narrowing with degenerative endplate changes in the spine. IMPRESSION: No acute findings in the chest. Electronically signed by: Chinmay Perez MD 05/31/2022 5:06 AM SUPPRESSION CREW LEADER Due to temporary technical issues with the PACS/Fluency reporting system, reports are being signed by the in house radiologists without review as a courtesy to insure prompt reporting. The interpreting radiologist is fully responsible for the content of the report.
--- NOTE | 2022-06-01 18:16 | RAD REPORT ---
EXAM DESCRIPTION: CT - Soft Tissue Neck Wo Contr - 05/31/2022 6:04 am CLINICAL HISTORY: The patient is 56 years old and is Male; FORIEGN BODY TECHNIQUE: Axial computed tomography images of the neck without intravenous contrast. Sagittal and coronal reformatted images were created and reviewed. This CT exam was performed using one or more of the following dose reduction techniques: automated exposure control, adjustment of the mA and/o r kV according to patient size, and/or use of iterative reconstruction technique. COMPARISON: No relevant prior studies available. FINDINGS: OROPHARYNX: Unremarkable. No significant tonsillar enlargement. HYPOPHARYNX: Unremarkable. LARYNX: Unremarkable. Normal epiglottis. TRACHEA: Unremarkable. RETROPHARYNGEAL SPACE: Unremarkable. SUBMANDIBULAR/PAROTID GLANDS: Unremarkable. Glands are normal in size. THYROID: Unremarkable. No enlarged or calcified nodules. BONES/JOINTS: Mild multilevel degenerative change of the spine is present. There is no acute fra cture. SOFT TISSUES: The soft tissues are normal. VASCULATURE: Unremarkable. Normal in course and caliber. LYMPH NODES: Unremarkable. No enlarged lymph nodes. LUNG APICES: The lung apices are clear. IMPRESSION: No acute findings on this noncontrasted CT of the soft tissues of the neck to explain th e patient's symptoms. Electronically signed by: Joann Willis MD 05/31/2022 5:10 AM CAR RACER Due to temporary technical issues with the PACS/Fluency reporting system, reports are being signed by the in house radiologists without review as a courtesy to insure prompt reporting. The interpreting radiologist is fully responsible for the content of the report.
== END 2022-05-31 05:22 | disposition home or self-care (01) ==
LOC: ER 03:30
DX: R07.0 Pain in throat (principal)
CPT/HCPCS: 70490; 71046; 99283

== ENCOUNTER 2024-08-10 09:36 | Observation (INO) | payer OTHER, SELFPAY ==
--- OUTSIDE RECORDS SUMMARY | 2024-08-10 09:39 | XMS REPORT | Continuity of Care Document ---
Author Name Unknown Address [address] [facility] [place] [address] Organization [facility] [place] Address [address] [facility] [place] [address] Care Team Providers Care Talent Acquisition Coordinator Name Role Phone SARA ONTIVEROS Primary Care Physician UnavailINDIA Toussaint Attending Clinician UnavailINDIA Lombardi Attending Clinician Unavaila Evelyn Simental Attending Clinician Unavaila camila Doctor Unassigned, [place] Attending Clinician U navailable SARA ONTIVEROS Attending Clinician Unavailable Pauly Chang MD Attending Clinician , [facility] Sleep Lab Bed Attending Clinician Unavail India Vuong MD Attending Clinician Sara Ludwig Attending Clinician Lab, Ang - Db Attending Clinician Unavailable VICKIE KEATING Attending Clinician Unavailable TYRONE SHEPARD Attending Clinician Unavailable NUSRAT FRIEND Attending Clinician Unavailable Payers Payer Name Policy Type Policy Number Effective Date Expirati on Date Source Problems Condition Name Condition Details Condition Category Status Onset Date Resolution Date Last Treatment Date Treating Clinician Comments Source No known active problems No known active problems Disease [facility] Allergies, Adverse Reactions, Alerts Allergy Name Allergy Type Status Severity Reaction(s) Onset Date Inactive Date Treating Clinician Comments Source POLLEN EXTRACTS DRUG INGREDI Active Med Other-Cmnt 09-25 00:00: 00 [facility] Pollen Extracts Propensi ty to adverse reaction s Active Other - See comments 09-25 00:00: 00 [facility] NO KNOWN ALLERGIE S Drug Class Active [facility] Social History Social Habit Start Date Stop Date Quantity Comments Source Gender identity [facility] Sexual orientation [facility] Alcohol intake 2022-09-25 00:00:00 2022-09-25 00:00:00 Lifetime non-drinker (finding) [facility] Exposure to SARS-CoV-2 (event) 2022-04-05 00:00:00 2022-04-15 13:14:00 Not sure [facility] Tobacco use and exposure 2022-04-10 00:00:00 2022-04-10 00:00:00 Smokeless tobacco non-user [facility] History of tobacco use 2021-11-01 00:00:00 Cigarette Smoker [facility] Tobacco Comment 2021-10-24 00:00:00 2021-10-24 00:00:00 Patient trying to quit, currently smokes 1 cigarette/ day. [facility] History of Social function 2021-10-03 00:00:00 2021-10-03 00:00:00 [facility] Sex Assigned At 1965 00:00:00 1965 00:00:00 [facility] Smoking Status Start Date Stop Date Source Ex-smoker 2022-04-10 00:00:00 2022-04-10 00:00:00 U [facility] Smokes tobacco daily 2021-10-24 00:00:00 [facility] Medications Ordered Medication Name Filled Medication Name Start Date Stop Date Current Medication? Ordering Clinician Indication Dosage Frequency Signature (SIG) Comments Components Source ergocalcife rol, vitamin d2, 1,250 mcg (50,000 unit) capsule 11-14 00:00: 00 Yes [id number] Take 1 capsule by mouth weekly. [facility] naproxen 500 mg tablet 11-14 00:00: 00 Yes [id number] 500mg Take 1 tablet by mouth 2 (two) times daily as needed for Pain (scale 4-6) (use spraignly due to side effects). [facility] famotidine 40 mg tablet 09-25 00:00: 00 03-25 05:59 :00 No [id number] 40mg Take 1 tablet by mouth at bedtime for 180 days. [facility] ergocalcife rol, vitamin d2, 1,250 mcg (50,000 unit) capsule 04-16 00:00: 00 11-14 00:00 :00 No [id number] Take 1 capsule by mouth weekly. [facility] naproxen 500 mg tablet 10-24 00:00: 00 11-14 00:00 :00 No [id number] 500mg Take 1 tablet by mouth 2 (two) times daily as needed for Pain (scale 4-6) (use spraignly due to side effects). [facility] tiZANidine 4 mg tablet 10-24 00:00: 00 09-25 00:00 :00 No [id number] 4mg Take 1 tablet by mouth 3 (three) times daily as needed for Pain (scale 7-10). [facility] methylPREDN ISolone 4 mg tablets 10-24 00:00: 00 10-31 04:59 :00 No [id number] Take by mouth SEE-INSTRU CTIONS for 6 days. follow package directions [facility] Vital Signs Vital Name Observation Time Observation Value Comments S ource Body temperature 2022-09-25 14:45:00 36.61 Angelika [facility] Body height 2022-09-25 14:45:00 188 cm [facility] Body weight 2022-09-25 14:45:00 107.684 kg [facility] BMI 2022-09-25 14:45:00 30.48 kg/m2 [facility] Systolic blood pressure 2022-04-10 20:30:00 135 mm[Hg] [facility] Diastolic blood pressure 2022-04-10 20:30:00 88 mm[Hg] [facility] Heart rate 2022-04-10 20:30:00 88 /min [facility] Body temperature 2022-04-10 20:30:00 36.78 Angelika [facility] Respiratory rate 2022-04-10 20:30:00 20 /min [facility] Body height 2022-04-10 20:30:00 188 cm [facility] Body weight 2022-04-10 20:30:00 105.87 kg [facility] BMI 2022-04-10 20:30:00 29.97 kg/m2 [facility] Oxygen saturation in Arterial blood by Pulse oximetry 2022-04-10 20:30:00 96 /min [facility] Respiratory rate 2021-10-24 16:11:00 18 /min [facility] Body height 2021-10-24 16:11:00 188 cm [facility] Body weight 2021-10-24 16:11:00 98.657 kg [facility] BMI 2021-10-24 16:11:00 27.93 kg/m2 [facility] Oxygen saturation in Arterial blood by Pulse oximetry 2021-10-24 16:11:00 97 /min [facility] Systolic blood pressure 2021-10-24 16:11:00 123 mm[Hg] [facility] Diastolic blood pressure 2021-10-24 16:11:00 85 mm[Hg] [facility] Heart rate 2021-10-24 16:11:00 75 /min [facility] Body temperature 2021-10-24 16:11:00 36.67 Angelika [facility] Procedures Procedure Date / Time Performed Performing Clinician Source INSURANCE CORRESPONDENCE 2023-02-04 05:01:00 Doc tor Unassigned, [place] [facility] SLEEP STUDY DATA REPORT 2022-11-14 05:01:00 Doct or Unassigned, [place] [facility] REFERRAL- REQUEST/RESPONSE 2022-05-06 06:01:00 Doctor Unassigned, [place] [facility] COMP. METABOLIC PANEL ([id number]) 2022-04-15 19:35:00 Sara Ontiveros [facility] CBC WITH DIFF 2022-04-15 19:35:00 [facility] Start Date/Time End Date/Time Encounter Type Admission Type Attending Clinicians Care Facility Care Department Encounter ID Source 2023-04-25 20:00:00 2023-04-25 20:00:00 Outpatient INDIA CHATTERJEE STRAORShae [facility] [id number] [facility] 2023-02-13 00:00:00 2023-02-13 00:00:00 Telephone Evelyn Carrizales 1.2.840.114 350.1.13.10 4.2.7.2.686 [id number] [facility] 2023-02-12 20:00:00 2023-02-12 20:00:00 Outpatient [place]JEE [facility] [id number] [facility] 2023-02-11 20:00:00 2023-02-11 20:00:00 Outpatient INDIA CHATTERJEE STRAORShae [facility] [id number] [facility] 2023-02-04 00:00:00 2023-02-04 00:00:00 Orders Only Doctor Unassigned, [place] [facility] 1.2.840.114 350.1.13.10 4.2.7.2.686 [id number] [facility] 2023-01-20 00:00:00 2023-01-20 00:00:00 Telephone Evelyn Carrizales 1.2.840.114 350.1.13.10 4.2.7.2.686 [id number] [facility] 2023-01-15 09:00:00 2023-01-15 09:00:00 Outpatient SARA GUTIERREZ [facility] [id number] [facility] 2023-01-08 11:30:00 2023-01-08 11:30:00 Outpatient SARA GUTIERREZ [facility] [id number] [facility] 2022-12-31 00:00:00 2022-12-31 00:00:00 Telephone Pauly Chang [facility] RITESH MAGAÑA 1.2.840.114 350.1.13.10 4.2.7.2.686 [id number] [facility] 2022-11-14 20:00:00 2022-11-14 22:30:00 Developmental Writing Instructor Visit 1, [facility] Sleep Lab Bed India Gambino [facility] 1.2840.114 350.1.13.10 4.2.7.2.686 [id number] [facility] 2022-11-14 20:00:00 2022-11-14 20:00:00 Outpatient R INDIA GAMBINO STRAORShae [facility] [id number] [facility] 2022-11-14 00:00:00 2022-11-14 00:00:00 Reflindsey Rama [facility] 1.2840.114 350.1.13.10 4.2.7.2.686 [id number] [facility] 2022-11-14 00:00:00 2022-11-14 00:00:00 Karelylindsey Ontiveros [facility] 1.2840.114 350.1.13.10 4.2.7.2.686 [id number] [facility] 2022-11-14 00:00:00 2022-11-14 00:00:00 Orders Only Doctor Unassigned, [place] [facility] 1.2840.114 350.1.13.10 4.2.7.2.686 [id number] [facility] 2022-09-25 09:45:00 2022-09-25 10:00:00 Office Visit Pauly Chang [facility] RITESH MAGAÑA 1.0.114 350.1.13.10 4.2.7.2.686 [id number] [facility] 2022-09-25 09:45:00 2022-09-25 09:45:00 Outpatient R PAULY CHANG [facility] [id number] [facility] 2022-09-11 15:15:00 2022-09-11 15:15:[address] [facility] [id number] [facility] 2022-05-06 00:00:00 2022-05-06 00:00:00 Orders Only Doctor Unassigned, [place] [facility] 1.0.114 350.1.13.10 4.2.7.2.686 [id number] [facility] 2022-04-30 00:00:00 2022-04-30 00:00:00 Telephone Evelyn Carrizales JANET MAGAÑA 1..114 350.1.13.10 4.2.7.2.686 [id number] [facility] 2022-04-25 00:00:00 2022-04-25 00:00:00 [facility] 1.284.114 350.1.13.10 4.2.7.2.686 [id number] [facility] 2022-04-15 13:15:00 2022-04-15 13:30:02 Outpatient R SARA ONTIVEROS [facility] [id number] [facility] 2022-04-15 13:15:00 2022-04-15 13:30:02 Developmental Writing Instructor Visit Lab, [place] - Feliz Ontiveros [facility] 1.284.114 350.1.13.10 4.2.7.2.686 [id number] [facility] 2022-04-10 14:30:00 2022-04-10 15:28:58 Outpatient R SARA ONTIVEROS [facility] [id number] [facility] 2022-04-10 14:30:00 2022-04-10 15:28:58 Office Visit Rama [facility] 1.84.114 350.1.13.10 4.2.7.2.686 [id number] [facility] 2021-12-10 08:45:00 2021-12-10 08:45:00 Outpatient R VICKIE KEATIGN [facility] [id number] [facility] 2021-11-29 12:30:00 2021-11-29 12:30:00 Outpatient R TYRONE SHEPARD [facility] [id number] [facility] 2021-11-27 11:30:00 2021-11-27 11:30:00 Outpatient R NUSRAT FRIEND [facility] [id number] [facility] 2021-11-19 14:00:00 2021-11-19 14:00:00 Outpatient R NUSRAT FRIEND [facility] [id number] [facility] 2021-11-05 14:30:00 2021-11-05 14:30:00 Outpatient R NUSRAT FRIEND [facility] [id number] [facility] 2021-10-24 13:00:00 2021-10-24 23:59:00 Outpatient R RAMASARA [facility] [id number] [facility] 2021-10-24 11:45:00 2021-10-24 12:00:00 Developmental Writing Instructor Visit Lab, Ang - Db Rama [facility] 1.840.114 350.1.13.10 4.2.7.2.686 [id number] [facility] 2021-10-24 11:00:00 2021-10-24 11:44:18 Outpatient R SARA ONTIVEROS [facility] [id number] [facility] 2021-10-24 11:00:00 2021-10-24 11:44:18 [facility] 1.840.114 350.1.13.10 4.2.7.2.686 [id number] [facility] 2021-10-17 11:30:00 2021-10-17 11:30:00 Outpatient R SARA ONTIVEROS [facility] [id number] [facility] 2021-10-15 16:30:00 2021-10-15 16:30:00 Outpatient R NUSRAT FRIEND [facility] [id number] [facility] 2021-10-15 16:30:00 2021-10-15 16:30:00 Outpatient R [facility] [id number] [facility] 2021-10-11 00:00:00 2021-10-11 00:00:00 [facility] 1.840.114 350.1.13.10 4.2.7.2.686 [id number] [facility] 2021-10-09 00:00:00 2021-10-09 00:00:00 Telephone [facility] 1.840.114 350.1.13.10 4.2.7.2.686 [id number] [facility] 2021-10-03 10:30:00 2021-10-03 11:43:54 [facility] 1.84.114 350.1.13.10 4.2.7.2.686 [id number] [facility] 2021-10-03 10:30:00 2021-10-03 11:43:54 Outpatient R SARA ONTIVEROS [facility] [id number] [facility] 2021-10-03 10:30:00 2021-10-03 11:43:54 [facility] [id number] [facility] 2021-10-03 00:00:00 2021-10-03 00:00:00 Telephone Rama [facility] WOODY?[facility] 1.2.840.114 350.1.13.10 4.2.7.2.686 [id number] [facility] Results Test Description Test Time Test Comments Results Result Co mments Source [facility] ([id number])2022-04-15 22:48:08* Test Item Value Reference Range Interpretation Comme nts NA (test code = 1326012836) 138 mmol/L 135-145 K (test code = 0245171407) 4.6 mmol/L 3.5-5.0 CL (test code = 9885095644) 104 mmol/L 98-108 CO2 TOTAL (test code = 4461258059) 27 mmol/L 23-31 AGAP (test code = 8326718753) 2-16 BUN (test code = 3691373484) 11 mg/dL 7-23 GLUCOSE (test code = 9404502308) 97 mg/dL 70-110 CREATININE (test code = 2204168674) 1.07 mg/dL 0.60-1.25 TOTAL BILI (test code = 1817786659) 0.6 mg/dL 0.1-1.1 CALCIUM (test code = 2510664601) 8.9 mg/dL 8.6-10.6 T PROTEIN (test code = 1991999359) 7.5 g/dL 6.3-8.2 ALBUMIN (test code = 1434132697) 4.5 g/dL 3.5-5.0 ALK PHOS (test code = 4578834632) 107 U/L 34-122 ALTv (test code = 1742-6) 55 U/L 5-50 H AST(SGOT) (test code = 6567507571) 42 U/L 13-40 H eGFR (test code = 3534288402) mL/min/1.73m2 MAIKOL (test code = MAIKOL) Association of [...] or abnormalities in imaging tests). Lab Interpretation (test code = 55744-0) Abnormal [facility] [id number] 07:58:05* Test Item Value Reference Range Interpretation Comme nts CHOLESTEROL (test code = 2210) 214 MG/DL <200 H TRIGLYCERIDES (test code = 2232) 123 MG/DL <150 HDL CHOLESTEROL (test code = 2220) 34 MG/DL >39 L CALC LDL CHOL (test code = 2237) 155 MG/DL <100 H NOTE: CALCULATED LDL IS BASED ON ROSY-DENISE METHOD WHICHINCLUDES ADJUSTABLE TRIGLYCERIDE:VLDL CHOLESTEROL RATIO.THIS FACTOR VARIES BY MEASURED TRIGLYCERIDE AND NON-HDLCHOLESTEROL CONCENTRATIONS WITH INCREASED CALCULATED LDL SEENIN HIGHER TRIGLYCERIDE OR LOWER NON-HDL SPECIMENS. FOR MOREINFORMATION, SEE CLIENT ANNOUNCEMENT AT [email or web address] RISK RATIO LDL/HDL (test code = 2237) 4.56 RATIO <3.55 H COMPREHENSIVE METABOLIC [id number] 07:58:05* Test Item Value Reference Range Interpretation Comme nts GLUCOSE (test code = 2216) 93 MG/DL 70-99 BUN (test code = 2207) 13 MG/DL 6-20 CREATININE (test code = 2213) 1.08 MG/DL 0.80-1.40 eGFR (2020 CKD-EPI) (test code = 62013) 82 ML/MIN/1.73 >60 CALC BUN/CREAT (test code = 5) 12 RATIO 6-28 SODIUM (test code = 2230) 141 MEQ/L 133-146 POTASSIUM (test code = 2227) 4.1 MEQ/L 3.5-5.4 CHLORIDE (test code = 2214) 105 MEQ/L 95-107 CARBON DIOXIDE (test code = 2205) 22 MEQ/L 19-31 CALCIUM (test code = 2208) 9.1 MG/DL 8.5-10.5 PROTEIN, TOTAL (test code = 2228) 7.0 G/DL 6.1-8.3 ALBUMIN (test code = 2200) 4.0 G/DL 3.5-5.2 CALC GLOBULIN (test code = 2240) 3.0 G/DL 1.9-3.7 CALC A/G RATIO (test code = 223) 1.3 RATIO 1.0-2.6 BILIRUBIN, TOTAL (test code = 2206) 0.4 MG/DL See_Comment [Automated me ssage] The system which generated this result transmitted reference range: <=1.2. The reference range was not used to interpret this result as normal/abnormal. ALKALINE PHOSPHATASE (test code = 2203) 85 U/L 40-121 AST (test code = 8) 15 U/L 9-50 ALT (test code = 9) 20 U/L 5-50 [id number] 06:51:08* Test Item Value Reference Range Interpretation Comme nts RPR RESULT (test code = 3501) NON-REACTIVE NON-REACTIVE RPR TITER (test code = 3500) NOT INDIC. TITER NOT INDIC. HIV 1/2 4TH GEN, RFLX [id number] 05:47:42* Test Item Value Reference Range Interpretation Comme nts HIV 1/2 4TH GEN, RFLX CONF ( test code = 3514) NON-REACTIVE NON-REACTIVE HEPATITIS PANEL, [id number] 05:47:42* Test Item Value Reference Range Interpretation Comme nts HEPATITIS A IgM (test code = 76401) NON-REACTIVE NON-REACTIVE HEPATITIS B CORE IgM (test code = 4644) NON-REACTIVE NON-REACTIVE HEPATITIS B SURF AG (test code = 2739) NON-REACTIVE NON-REACTIVE HEPATITIS C ANTIBODY (test code = 4675) NON-REACTIVE NON-REACTIVE INTERPRETATION HEPATITIS A: (test code = 2552) (NOTE) Hepatitis A sero logy shows no evidence of acute hepatitis A. INTERPRETATION HEPATITIS B: (test code = 46222) (NOTE) Hepatitis B sero logy shows no evidence of acute hepatitis B andno indication of exposure to hepatitis B virus in the previous jer eight months. INTERPRETATION HEPATITIS C: (test code = 55211) (NOTE) Hepatitis C sero logy shows no evidence of exposure to hepatitisC virus at this time. It can take up to 12 months after exposure tothe hepatitis C virus for antibodies to become detectable in the blood in certain patients. UNLESS OTHERWISE INDICATED, ALL TESTING PERFORMED [facility] [address] [place] [address] MEDICAL RECORDS SUPERVISOR: RY PURVIS M.D. CLIA NUMBER [id number] [facility] [place]. [id number] CBC W/AUTO DIFF WITH [id number] 03:42:47* Test Item Value Reference Range Interpretation Comme nts WBC (test code = 1001) 5.9 K/UL 3.5-11.0 RBC (test code = 1002) 5.20 M/UL 4.50-6.10 HEMOGLOBIN (test code = 1003) 15.9 G/DL 13.5-17.0 HEMATOCRIT (test code = 1004) 45.1 % 40.0-51.0 MCV (test code = 1005) 86.7 fL 80.0-99.0 MCH (test code = 1006) 30.6 PG 25.0-33.0 MCHC (test code = 1007) 35.3 G/DL 31.0-36.0 RDW (test code = 1038) 13.0 % 11.5-15.0 NEUTROPHILS (test code = 1008) 46.3 % LYMPHOCYTES (test code = 1010) 40.4 % MONOCYTES (test code = 1011) 7.7 % EOSINOPHILS (test code = 1012) 4.1 % BASOPHILS (test code = 1013) 1.2 % IMMATURE GRANULOCYTES (test code = 1036) 0.3 % NUCLEATED RBCS (test code = 1065) 0.0 /100 WBC'S See_Comment [Automated [employer]] The system which generated this result transmitted reference range: 0.0. The reference range was not used to interpret this result as normal/abnormal. PLATELET COUNT (test code = 1015) 296 K/UL 130-400 ABSOLUTE NEUTROPHILS (test code = 1066) 2.71 K/UL 1.50-7.50 ABSOLUTE LYMPHOCYTES (test code = 1067) 2.37 K/UL 1.00-4.00 ABSOLUTE MONOCYTES (test code = 1068) 0.45 K/UL 0.20-1.00 ABSOLUTE EOSINOPHILS (test code = 1040) 0.24 K/UL 0.00-0.50 ABSOLUTE BASOPHILS (test code = 1069) 0.07 K/UL 0.00-0.20 ABS IMMATURE GRANULOCYTES (test code = 1020) 0.02 K/UL 0.00-0.10 ABS NUCLEATED RBCS (test code = 12954) 0.00 K/UL 0.00-0.11 Notes Date/Time Note Provider Source 2022-11-14 14:42:01 Formatting of this n ote is different from the original. Images from the original note were not included. Requested Renewals naproxen 500 mg tablet Sig: Take 1 tablet by mouth 2 (two) times daily as needed for Pain (scale 4-6) (use spraignly due to side effects). Disp: 60 tablet Refills: 1 Start: 11/14/2022 Class: eRX For: Chronic right-sided low back pain with right-sided sciatica Last ordered: 1 year ago (10/24/2021) by ROHIT Chau Analgesics: NSAIDS Passed 11/14/2022 02:00 PM Protocol Details Valid encounter within last 12 months Cr in normal range and within 360 days To be filled at: [facility] #[id number] - [place], [place] - [address] [employer] Recent Visits Date Type Provider Dept 04/10/22 Office Visit Sara Ontiveros FNP [facility] 10/24/21 Office Visit Sara Ontiveros FNP [facility] 10/03/21 Office Visit Sara Ontiveros PRINCIPAL LAW CLERK [facility] Showing recent visits within past 540 days with a meds authorizing provider and meeting all other requirements Future Appointments No visits were found meeting these conditions. Showing future appointments within next 150 days with a meds authorizing provider and meeting all other requirements Bonita Frank [facility] 2022-11-14 14:41:31 Formatting of this n ote is different from the original. Images from the original note were not included. Requested Renewals ergocalciferol, vitamin d2, 1,250 mcg (50,000 unit) capsule Sig: Take 1 capsule by mouth weekly. Disp: 12 capsule Refills: 1 Start: 11/14/2022 Class: eRX For: Vitamin D deficiency Last ordered: 7 months ago (04/16/2022) by ROHIT Chau Off-Protocol Failed 11/14/2022 02:00 PM Protocol Details Medication not assigned to a protocol, forward to provider. Valid encounter within last 12 months To be filled at: [facility] #[id number] - [place] - [address] [facility] [employer] Recent Visits Date Type Provider Dept 04/10/22 Office Visit Sara Ontiveros FNP [facility] 10/24/21 Office Visit Sara Ontiveros FNP [facility] 10/03/21 Office Visit Sara Ontiveros FNP [facility] Showing recent visits within past 540 days with a meds authorizing provider and meeting all other requirements Future Appointments No visits were found meeting these conditions. Showing future appointments within next 150 days with a meds authorizing provider and meeting all other requirements [facility] Frank [facility]"
[2024-08-10] MEDS ORDERED: NA CHLORIDE 0.9% 1,000 ML ONE (10:24)
[2024-08-10] MEDS ORDERED: LORazepam 2 MG/ML VIAL ONE (10:24)
--- NOTE | 2024-08-10 10:24 | RAD REPORT ---
EXAM: CT brain without contrast HISTORY: PAIN COMPARISON: 05/31/2022 TECHNIQUE: Multiple contiguous axial images were obtained and a CT of the brain without contrast. Sag ittal and coronal reformats were performed. FINDINGS: No evidence of hydrocephalus, intracranial hemorrhage, or extra-axial fluid collection. The brain is normal in morphology. The calvarium is intact. The visualized paranasal sinuses and mastoid air cells are essentially clear . IMPRESSION: No evidence of acute intracranial abnormality. EXAM: CT of the cervical spine without contrast HISTORY: PAIN COMPARISON: None TECHNIQUE: Multiple contiguous axial images were obtained in a CT of the cervical spine without contr ast. Sagittal and coronal reformats were performed. FINDINGS: The vertebral bodies demonstrate normal height and alignment. No evidence of acute fracture or subluxation.. Mild to moderate multilevel degenerative changes are present. No prevertebral soft tissue swelling is seen. The posterior facets are well aligned. Normal alignment of the skull base with the cervical spine is seen. The lung apices are unremarkable apart from right posterior apical 5 mm calcified granuloma.. IMPRESSION: No evidence of acute osseous abnormality of the cervical spine.
[2024-08-10 10:32] LABS: Absolute Basophils 0.1 K/uL (0-0.5); Absolute Eosinophils 0.2 K/uL (0-0.5); Absolute Lymphocytes (CBC) 1.3 K/uL (0.7-4.9); Absolute Monocytes 0.6 K/uL (0.1-1.3); Absolute Neutrophil 4.6 K/uL (1.8-8.0); Basophils % 0.8 % (0-1.3); Eosinophils % 3.3 % (0-4.4); Hematocrit 51.7 % (39.6-49.0); Hemoglobin 18.5 g/dL (13.6-17.9); Lymphocytes % 19.2 % (15.3-44.8); MCH 31.4 pg (27.0-35.0); MCHC 35.9 g/dL (32.0-36.0); MCV 87.6 fL (80-100); MPV 8.3 fL (7.6-11.3); Monocytes % 8.9 % (3.3-12.3); Neutrophils % 67.8 % (41.7-73.7); Nucleated Red Blood Cells % 0.1 % (0-0); Platelets 257 thou/uL (152-406); Red Cell Distribution Width 14.5 % (12.1-15.2)
[2024-08-10 10:35] LABS: PT Prothrombin Time 12.1 SECONDS (10-13.0); Protime INR 1.06
--- NOTE | 2024-08-10 10:43 | RAD REPORT ---
EXAMINATION: ONE VIEW CHEST XR CLINICAL INDICATION: Male, 58 years old.,CHEST PAIN TECHNIQUE: Frontal chest projection is submitted. Examination is limited by patient positioning and t echnique. COMPARISON: 05/31/2022 FINDINGS: The lungs are well inflated and clear. No pneumothorax or sizable effusion. The heart is normal in s ize. Mediastinal contours are unremarkable. IMPRESSION: No acute intrathoracic abnormalities.
[2024-08-10 10:50] LABS: Anion Gap 9.5 mEq/L (5.0-15.0); Bilirubin Direct 0.3 mg/dL (0-0.2); Bilirubin Indirect, Calculated 0.6 mg/dL (0.2-0.8); Bilirubin Total 0.9 mg/dL (0.2-1.0); Magnesium 2.1 mg/dL (1.6-2.4); Potassium 3.5 mEq/L (3.5-5.1); Troponin High Sensitivity 5.2 pg/mL (<58.9)
[2024-08-10 11:34] LABS: Blood Morphology Comment NOT SEEN (NOT SEEN); Platelet Estimate ADEQ; White Blood Cell Scan OK (OK)
[2024-08-10] MEDS ORDERED: ENOXAPARIN 100 MG/ML SYR SQ ONE (12:29)
[2024-08-10] MEDS ORDERED: ASPIRIN 81 MG CHEWABLE TABLET ONE (12:29)
[2024-08-10] MEDS ORDERED: METOPROLOL TAR 50 MG TAB ONE (12:29)
--- NOTE | 2024-08-10 12:29 | EDPHYS ---
Physician Documentation [facility] Name: Tariq Preston II Age: 58 yrs Sex: Male : 1965 Arrival Date: 08/10/2024 Time: 09:36 Bed 17 Private MD: MIGUEL Physician Saleem Lynn HPI: 08/10 12:23 This 58 yrs old Male presents to ER via Ambulatory with complaints of frantz Headache, Chest Pain, Neck Problem, shaky. 12:23 The patient complains of pain to the left jaw, left side of the back of head, left frantz occipital area and left base of the skull. The patient describes the headache as aching. Historical: - Allergies: : No Known Allergies; hb - Home Meds: : None [Active]; hb - PMHx: : None; hb - PSHx: : None; hb - Immunization history:: Adult Immunizations up to date. - Infectious Disease History:: Denies. - Social history:: Smoking status: Patient reports use of chewing tobacco. ROS: 12:24 Constitutional: Negative for fever, chills, and weight loss, Eyes: Negative for injury, frantz pain, redness, and discharge, ENT: Negative for injury, pain, and discharge, Neck: Negative for injury, pain, and swelling, Respiratory: Negative for shortness of breath, cough, wheezing, and pleuritic chest pain, Abdomen/GI: Negative for abdominal pain, nausea, vomiting, diarrhea, and constipation, Back: Negative for injury and pain, : Negative for injury, bleeding, discharge, and swelling, MS/Extremity: Negative for injury and deformity, Skin: Negative for injury, rash, and discoloration, Neuro: Negative for headache, weakness, numbness, tingling, and seizure, Psych: Negative for depression, anxiety, suicide ideation, homicidal ideation, and hallucinations, Allergy/Immunology: Negative for hives, rash, and allergies, Endocrine: Negative for neck swelling, polydipsia, polyuria, polyphagia, and marked weight changes, Hematologic/Lymphatic: Negative for swollen nodes, abnormal bleeding, and unusual bruising, 12:24 Cardiovascular: Positive for chest pain, Exam: 12:24 Constitutional: This is a well developed, well nourished patient who is awake, alert, frantz and in no acute distress. Head/Face: Normocephalic, atraumatic. Eyes: Pupils equal round and reactive to light, extra-ocular motions intact. Lids and lashes normal. Conjunctiva and sclera are non-icteric and not injected. Cornea within normal limits. Periorbital areas with no swelling, redness, or edema. ENT: Nares patent. No nasal discharge, no septal abnormalities noted. Tympanic membranes are normal and external auditory canals are clear. Oropharynx with no redness, swelling, or masses, exudates, or evidence of obstruction, uvula midline. Mucous membranes moist. Neck: Trachea midline, no thyromegaly or masses palpated, and no cervical lymphadenopathy. Supple, full range of motion without nuchal rigidity, or vertebral point tenderness. No Meningismus. Chest/axilla: Normal chest wall appearance and motion. Nontender with no deformity. No lesions are appreciated. Respiratory: Lungs have equal breath sounds bilaterally, clear to auscultation and percussion. No rales, rhonchi or wheezes noted. No increased work of breathing, no retractions or nasal flaring. Abdomen/GI: Soft, non-tender, with normal bowel sounds. No distension or tympany. No guarding or rebound. No evidence of tenderness throughout. Back: No spinal tenderness. No costovertebral tenderness. Full range of motion. Male : Normal genitalia with no discharge or lesions. Skin: Warm, dry with normal turgor. Normal color with no rashes, no lesions, and no evidence of cellulitis. MS/ Extremity: Pulses equal, no cyanosis. Neurovascular intact. Full, normal range of motion., bilateral aka Neuro: Awake and alert, GCS 15, oriented to person, place, time, and situation. Cranial nerves II-XII grossly intact. Motor strength 5/5 in all extremities. Sensory grossly intact. Cerebellar exam normal. Normal gait. Psych: Awake, alert, with orientation to person, place and time. Behavior, mood, and affect are within normal limits. 12:24 Cardiovascular: Rate: normal, Rhythm: regular, Pulses: Pulses are 4+ in bilateral radial, brachial, femoral, popliteal, posterior tibial and and dorsalis pedis arteries.. 12:24 ECG was reviewed by the Attending Physician. 12:24 Musculoskeletal/extremity: DVT Exam: No signs of deep vein thrombosis. no pain, no swelling, no tenderness, negative Homans' sign noted on exam, no appreciated bluish discoloration, no erythema, no increased warmth, Vital Signs: 09:55 BP 159 / 110; Pulse 95; Resp 14; Temp 98.5(O); Pulse Ox 96% on R/A; Weight 101.6 kg; hb Height 6 ft. 2 in. ; Pain 8/10; 11:04 BP 132 / 106; Pulse 86; Resp 18 S; Pulse Ox 98% on R/A; kc6 12:12 BP 139 / 94; kc6 13:40 BP 133 / 98; Pulse 78; Resp 16 S; Pulse Ox 95% on R/A; kc6 09:55 Body Mass Index 28.76 (101.60 kg, 187.96 cm) hb 09:55 Pain Scale: Adult hb Clayton Coma Score: 12:26 Eye Response: spontaneous(4). Motor Response: obeys commands(6). Verbal Response: frantz oriented(5). Total: 15. MDM: 09:42 Medical Screening Exam initiated frantz 12:26 Differential diagnosis: cluster headache, abnormal EKG, acute myocardial infarction, frantz acute pericarditis, anxiety, coronary artery disease chest wall pain, esophagitis, hiatal hernia, pancreatitis, peptic ulcer disease, pericarditis, pulmonary embolus, stable angina, unstable angina, migraine, tension headache. HEART Score: History: Slightly Suspicious (0), ECG: Non specific repolarization disturbance / LBTB / PM (1), Age: > 45 and < 65 years (1), Risk Factors: 1 or 2 risk factors (1), [Hypertension] [+ Family HX] Troponin: < or = 1 x Normal Limit (0). The patient was given aspirin in the Emergency Department. Data reviewed: vital signs, nurses notes, lab test result(s), EKG, radiologic studies, plain films. Consideration of Admission/Observation Escalation of care including admission/observation considered. I considered the following discharge prescriptions or medication management in the emergency department Medications were administered in the Emergency Department. See 09:46 Order name: Basic Metabolic Panel; Complete Time: 11:06 08/10 09:46 Order name: CBC with Diff; Complete Time: 12:21 [facility] 08/10 09:46 Order name: LFT's; Complete Time: 11:06 [facility] 08/10 09:46 Order name: Magnesium; Complete Time: 11:06 frantz 08/10 09:46 Order name: NT PRO-BNP; Complete Time: 11:06 frantz 08/10 09:46 Order name: PT-INR; Complete Time: 11:06 frantz 08/10 09:46 Order name: Troponin HS; Complete Time: 11:06 frantz 08/10 11:35 Order name: CBC Smear Scan; Complete Time: 12:21 EDMS 08/10 13:32 Order name: T4 Free EDMS 08/10 13:32 Order name: Thyroid Stimulating Hormone EDMS 05 13:32 Order name: Basic Metabolic Panel EDMS 05 13:32 Order name: Basic Metabolic Panel EDMS 05 13:32 Order name: Basic Metabolic Panel EDMS 05/ 13:32 Order name: Basic Metabolic Panel EDMS 05/ 13:32 Order name: CBC with Automated Diff EDMS 05/07 13:32 Order name: CBC with Automated Diff EDMS 05/07 13:32 Order name: CBC with Automated Diff EDMS 05/07 13:32 Order name: CBC with Automated Diff EDMS 05/07 13:32 Order name: Lipid Profile EDMS 05/07 13:32 Order name: Lipid Profile EDMS 05/07 13:32 Order name: Magnesium EDMS 05/07 13:32 Order name: Magnesium EDMS 05/07 13:32 Order name: Magnesium EDMS 05/07 13:32 Order name: Magnesium EDMS 05/07 13:32 Order name: Phosphorus EDMS 05/07 13:32 Order name: Phosphorus EDMS 05/07 13:32 Order name: Phosphorus EDMS 05/07 13:32 Order name: Phosphorus EDMS 05/07 13:32 Order name: Troponin High Sensitivity EDMS 05/07 13:32 Order name: Troponin High Sensitivity EDMS 05/07 13:32 Order name: Troponin High Sensitivity EDMS 05/07 09:46 Order name: XRAY Chest (1 view); Complete Time: 11:06 frantz 08/10 09:46 Order name: CT Head C Spine; Complete Time: 11:06 [facility] 08/10 09:46 Order name: EKG; Complete Time: 09:47 frantz 08/10 09:46 Order name: Cardiac monitoring; Complete Time: 10:00 frantz 08/10 09:46 Order name: EKG - Nurse/Tech; Complete Time: 10:31 [facility] 08/10 09:46 Order name: IV Saline Lock; Complete Time: : [facility] 08/10 09:46 Order name: Labs collected and sent; Complete Time: [facility] 08/10 09:46 Order name: O2 Per Protocol; Complete Time: 10: [facility] 08/10 09:46 Order name: O2 Sat Monitoring; Complete Time: 10: [facility] EC:24 Rate is 91 beats/min. Rhythm is regular. QRS [place] is Normal. NM interval is normal. QRS frantz interval is normal. QT interval is normal. No Q waves. T waves are Normal. No ST changes noted. Clinical impression: Normal ECG and No evidence of ischemia. Interpreted by me. Reviewed by me. Administered Medications: 10:31 Drug: NS 0.9% IV 1000 ml IV at 1 bolus Per protocol; to be given as a bolus over 60 kc6 minutes Route: IV; Rate: 1 bolus; Site: right forearm; 11:05 Follow up: Response: No adverse reaction; IV Status: Completed infusion; IV Intake: kc6 1000ml 10:32 Drug: Ativan IVP 1 mg IVP once Route: IVP; Site: right forearm; kc6 11:05 Follow up: Response: No adverse reaction; RASS: Alert and Calm (0) kc6 12:34 Drug: Aspirin PO Chewable Tablet 162 mg PO once Route: PO; kc6 13:14 Follow up: Response: No adverse reaction kc6 12:34 Drug: Metoprolol PO 50 mg PO once Route: PO; kc6 13:14 Follow up: Response: No adverse reaction kc6 12:34 Drug: Enoxaparin Sub-Q 1 mg/kg Sub-Q once Route: Sub-Q; Site: abdomen; kc6 13:14 Follow up: Response: No adverse reaction kc6 Disposition Summary: 08/10/24 12:29 Hospitalization Ordered Notes: Hospitalization Status: Observation frantz Provider: Noe Ramirez cha Location: Telemetry/MedSurg (observation) frantz Condition: Stable frantz Problem: new frantz Symptoms: have improved frantz Bed/Room Type: Standard frantz Room Assignment: 215(08/10/24 13:41) bd Diagnosis - Chest pain, unspecified frantz - Essential (primary) hypertension frantz Forms: - Medication Reconciliation Form frantz - SBAR form frantz - Leadership Thank You Letter frantz Signatures: Dispatcher [employer] Diana Raygoza Corey, MD MD cha Baxter, Heather, RN RN Snow Newell RN RN kc6 Corrections: (The following items were deleted from the chart) 13:41 12:29 fratnz tarango
--- NOTE | 2024-08-10 12:29 | ER ---
Nurse's Notes [facility] Name: Tariq Preston II Age: 58 yrs Sex: Male : 1965 Arrival Date: 08/10/2024 Time: 09:36 Bed 17 Private MD: Diagnosis: Chest pain, unspecified;Essential (primary) hypertension Presentation: 08/10 09:55 Chief complaint: Left sided chest wall pain that radiates to left armpit and left neck, hb headache, and generalized weakness upon waking today. Coronavirus screen: At this time, the client does not indicate any symptoms associated with coronavirus-19. Ebola Screen: No symptoms or risks identified at this time. Initial Sepsis Screen: Does the patient meet any 2 criteria? No. Patient's initial sepsis screen is negative. Does the patient have a suspected source of infection? No. Patient's initial sepsis screen is negative. Risk Assessment: Do you want to hurt yourself or someone else? Patient reports no desire to harm self or others. Onset of symptoms was August 10, 2024. 09:55 Method Of Arrival: Ambulatory hb 09:55 Acuity: YESENIA 2 hb Historical: - Allergies: 09:57 No Known Allergies; hb - Home Meds: 09:57 None [Active]; hb - PMHx: 09:57 None; hb - PSHx: 09:57 None; hb - Immunization history:: Adult Immunizations up to date. - Infectious Disease History:: Denies. - Social history:: Smoking status: Patient reports use of chewing tobacco. Screenin:32 [facility] ED Fall Risk Assessment (Adult) History of falling in the last 3 months, kc6 including since admission No falls in past 3 months (0 pts) Confusion or Disorientation No (0 pts) Intoxicated or Sedated No (0 pts) Impaired Gait No (0 pts) Mobility Assist Device Used No (0 pt) Altered Elimination No (0 pt) Score/Fall Risk Level 0 - 2 = Low Risk Oriented to surroundings, Maintained a safe environment, Educated pt \T\ family on fall prevention, incl call for assistance when getting out of bed. Abuse screen: Denies threats or abuse. Denies injuries from another. Nutritional screening: No deficits noted. Tuberculosis screening: No symptoms or risk factors identified. Assessment: 10:32 General: Appears in no apparent distress. comfortable, well groomed, well developed, kc6 Behavior is calm, cooperative, appropriate for age. Pain: Complains of pain in left base of the skull, left lateral anterior chest and left breast. Neuro: Level of Consciousness is awake, alert, obeys commands, Oriented to person, place, time, situation, Appropriate for age Reports headache in left occipital area. Cardiovascular: Reports chest pain, Heart tones S1 S2 present Capillary refill < 3 seconds Rhythm is sinus rhythm. Respiratory: Airway is patent Trachea midline Respiratory effort is even, unlabored, Respiratory pattern is regular, symmetrical. GI: No signs and/or symptoms were reported involving the gastrointestinal system. : No signs and/or symptoms were reported regarding the genitourinary system. Urine is clear. EENT: No signs and/or symptoms were reported regarding the EENT system. Derm: No signs and/or symptoms reported regarding the dermatologic system. Skin is intact, is healthy with good turgor, Skin is pink, warm \T\ dry. Musculoskeletal: No signs and/or symptoms reported regarding the musculoskeletal system. Circulation, motion, and sensation intact. Range of motion: intact in all extremities. 11:32 Reassessment: Patient appears in no apparent distress at this time. No changes from kc6 previously documented assessment. Patient and/or family updated on plan of care and expected duration. Pain level reassessed. Patient is alert, oriented x 3, equal unlabored respirations, skin warm/dry/pink. 12:32 Reassessment: Patient appears in no apparent distress at this time. No changes from kc6 previously documented assessment. Patient and/or family updated on plan of care and expected duration. Pain level reassessed. Patient is alert, oriented x 3, equal unlabored respirations, skin warm/dry/pink. 13:40 Reassessment: Patient appears in no apparent distress at this time. No changes from kc6 previously documented assessment. Patient and/or family updated on plan of care and expected duration. Pain level reassessed. Patient is alert, oriented x 3, equal unlabored respirations, skin warm/dry/pink. Vital Signs: 09:55 BP 159 / 110; Pulse 95; Resp 14; Temp 98.5(O); Pulse Ox 96% on R/A; Weight 101.6 kg; hb Height 6 ft. 2 in. ; Pain 8/10; 11:04 BP 132 / 106; Pulse 86; Resp 18 S; Pulse Ox 98% on R/A; kc6 12:12 BP 139 / 94; kc6 13:40 BP 133 / 98; Pulse 78; Resp 16 S; Pulse Ox 95% on R/A; kc6 09:55 Body Mass Index 28.76 (101.60 kg, 187.96 cm) hb 09:55 Pain Scale: Adult hb Clayton Coma Score: 12:26 Eye Response: spontaneous(4). Motor Response: obeys commands(6). Verbal Response: frantz oriented(5). Total: 15. ED Course: 09:41 Patient arrived in ED. al6 09:42 Saleem Lynn MD is Attending Physician. frantz 09:54 Snow Washington RN is Primary Nurse. kc6 09:57 Triage completed. hb 10:01 CT Head C Spine In Process Unspecified. EDMS 10:19 XRAY Chest (1 view) In Process Unspecified. EDMS 10:32 Initial lab(s) drawn, by me, sent to lab. EKG done, by ED staff, reviewed by Saleem Lynn MD. Inserted saline lock: 20 gauge in right forearm, using aseptic technique. Blood collected. Flushed with 10 mL NS. Patient maintains SpO2 saturation greater than 95% on room air. 10:32 Patient has correct armband on for positive identification. Bed in low position. Call kc light in reach. Side rails up X 1. Adult w/ patient. nuclear medicine officer on. Pulse ox on. NIBP on. Door closed. Noise minimized. Lights dimmed. Pillow given. Verbal reassurance given. 10:32 Arm band placed on. kc6 12:28 Noe Ramirez MD is Hospitalizing Provider. frantz Administered Medications: 10:31 Drug: NS 0.9% IV 1000 ml IV at 1 bolus Per protocol; to be given as a bolus over 60 kc6 minutes Route: IV; Rate: 1 bolus; Site: right forearm; 11:05 Follow up: Response: No adverse reaction; IV Status: Completed infusion; IV Intake: kc6 1000ml 10:32 Drug: Ativan IVP 1 mg IVP once Route: IVP; Site: right forearm; kc6 11:05 Follow up: Response: No adverse reaction; RASS: Alert and Calm (0) kc6 12:34 Drug: Aspirin PO Chewable Tablet 162 mg PO once Route: PO; kc6 13:14 Follow up: Response: No adverse reaction kc6 12:34 Drug: Metoprolol PO 50 mg PO once Route: PO; kc6 13:14 Follow up: Response: No adverse reaction kc6 12:34 Drug: Enoxaparin Sub-Q 1 mg/kg Sub-Q once Route: Sub-Q; Site: abdomen; kc6 13:14 Follow up: Response: No adverse reaction kc6 Intake: 11:05 IV: 1000ml; Total: 1000ml. kc6 Outcome: 12:29 Decision to Hospitalize by Provider. frantz 15:07 Patient left the ED. hb Signatures: Dispatcher [employer] EDSaleem Millard MD MD cha Baxter, Heather RN RN Snow Newell RN RN kc6 Viky Mancera
[2024-08-10] MEDS ORDERED: ACETAMINOPHEN 325 MG TABLET PO PRN (13:19)
[2024-08-10] MEDS ORDERED: NITROGLYCERIN 0.4 MG/TAB SL PRN (13:19)
--- NOTE | 2024-08-10 13:36 | P.HP ---
Certification for Inpatient Patient admitted to: Observation With expected LOS: <2 Midnights Patient will require the following post-hospital care: None Practitioner: I am a practitioner with admitting privileges, knowledge of patient current condition, hospital course, and medical plan of care. Services: Services provided to patient in accordance with Admission requirements found in Title 42 Section 412.3 of the Code of Federal Regulations Patient History Date of Service: 08/10/24 Reason for admission: Chest pain r/o History of Present Illness: Tariq Preston is a 58 year old male with no pmhx who presents to the ED with chest pain radiating from the left axilla across the left chest intermittently that started this morning. He denies chest pain in the past but reports a family history of CABG with his grandmother. On evaluation, chest pain has resolved, lung sounds clear. On evaluation, chest pain resolved, lung sounds clear, no acute distress. Laboratory evaluation significant for H&H 18/51, GFR 68, serum glucose 118. chest x-ray reports "The lungs are well inflated and clear. No pneumothorax or sizable effusion. The heart is normal in size. Mediastinal contours are unremarkable" Tariq will be admitted to hospitalist service for further evaluation of chest pain, Dr. Hernandez consulted. Allergies No Known Drug Allergies Allergy (Verified 08/10/24 15:26) Unknown Home Medications: NK [No Home Meds] 08/10/24 - Past Medical/Surgical History Past Medical History: Patient denies medical history Past Surgical History: Patient denies surgical history - Social History Alcohol use: No CD- Drugs: No Review of Systems Other: per HPI Physical Examination - Physical Exam General: Alert, In no apparent distress HEENT: Atraumatic, Normocephalic Neck: Supple, 2+ carotid pulse no bruit Respiratory: Clear to auscultation bilaterally, Normal air movement Cardiovascular: Normal pulses, Regular rate/rhythm, Normal S1 S2 Capillary refill: <2 Seconds Gastrointestinal: Normal bowel sounds, Soft and benign Musculoskeletal: No clubbing Integumentary: No rashes Neurological: Normal speech, Normal tone - Studies Laboratory Data (last 24 hrs) 08/10/24 08/10/24 08/10/24 10:20 10:20 10:20 WBC 6.80 Hgb 18.5 H Hct 51.7 H Plt Count 257 PT 12.1 INR 1.06 Sodium 137 Potassium 3.5 BUN 12 Creatinine 1.24 Glucose 118 H Magnesium 2.1 Total Bilirubin 0.9 AST 18 ALT 36 Alkaline Phosphatase 87 Assessment and Plan - Plan Assessment and plan Chest pain rule out - EKG: No obvious ST segment changes, trend - Serial troponin ,pending - Ordered transthoracic echocardiogram - chest x-ray reports "The lungs are well inflated and clear. No pneumothorax or sizable effusion. The heart is normal in size. Mediastinal contours are unremarkable" - Consult Cardiology - Stress test in the AM - S/P aspirin 324 mg PO x 1 in ED - Start daily aspirin and statin - Symptom control with PRN acetaminophen, nitroglycerin, morphine - continuous telemetry - TSH/FreeT4, A1C, lipid panel pending Headache/ neck ache -CT head/cervical spine reports "No evidence of acute osseous abnormality of the cervical spine." Substance abuse -Chews tobacco, previous methamphetamine use, been clean for 4 years -cessation education provided DVT ppx SCD Full code LOS 24 hour OBS Discharge Plan: Home Plan to discharge in: 24 Hours - Advance Directives Does patient have a Living Will: Yes Does patient have a Durable POA for Healthcare: No
[2024-08-10] MEDS: NA CHLORIDE 0.9% 1,000 ML IV SCH (15:20)
[2024-08-10 15:26] VITALS: BMI 28.8
--- NOTE | 2024-08-10 16:53 | P.CNS ---
Date of Consult: 08/10/24 Chief Complaint: Chest pain r/o History of Present Illness: Patient with PMH of substance abuse, Meth, has been clean for 4 years, family history of CAD, presented with sudden onset chest pain, left sided, radiate to neck and axilla and arm, denies palpitations, no SOB, no HAND, no syncope. Allergies No Known Drug Allergies Allergy (Verified 08/10/24 15:26) Unknown Home medications list reviewed: Yes Home Medications: NK [No Home Meds] 08/10/24 - Past Medical/Surgical History Diabetic: No - Social History Smoking Status: Unknown if ever smoked Place of Residence: Home Review of Systems 10-point ROS is otherwise unremarkable Physical Examination General: Alert, In no apparent distress HEENT: Atraumatic, PERRLA, Mucous membr. moist/pink, EOMI, Sclerae nonicteric Neck: Supple, 2+ carotid pulse no bruit, No LAD, Without JVD or thyroid abnormality Respiratory: Clear to auscultation bilaterally, Normal air movement Cardiovascular: Regular rate/rhythm, Normal S1 S2 Gastrointestinal: Normal bowel sounds, No tenderness Musculoskeletal: No tenderness Integumentary: No rashes Neurological: Normal gait, Normal speech, Normal tone, Normal affect Lymphatics: No axilla or inguinal lymphadenopathy Laboratory Data (last 24 hrs) 08/10/24 08/10/24 08/10/24 10:20 10:20 10:20 WBC 6.80 Hgb 18.5 H Hct 51.7 H Plt Count 257 PT 12.1 INR 1.06 Sodium 137 Potassium 3.5 BUN 12 Creatinine 1.24 Glucose 118 H Magnesium 2.1 Total Bilirubin 0.9 AST 18 ALT 36 Alkaline Phosphatase 87 - Problems (1) Chest pain Current Visit: Yes Status: Acute Plan: NPO after midnight get nuclear stress test in am get echo continue ASA 81 mg daily lipitor 40 mg daily (2) HLD (hyperlipidemia) Current Visit: Yes Status: Acute Plan: get lipid panel continue lipitor 40 mg daily (3) History of substance abuse Current Visit: Yes Status: Acute Plan: patient say he has been clean for 4 years, advise to continue to avoid it
[2024-08-10] MEDS: ATORVASTATIN 40 MG TAB PO SCH (19:50)
[2024-08-11 04:59] VITALS: O2SAT 95
[2024-08-11 06:07] LABS: Absolute Basophils 0.1 K/uL (0-0.5); Absolute Eosinophils 0.3 K/uL (0-0.5); Absolute Lymphocytes (CBC) 1.8 K/uL (0.7-4.9); Absolute Monocytes 0.5 K/uL (0.1-1.3); Absolute Neutrophil 4.3 K/uL (1.8-8.0); Basophils % 0.9 % (0-1.3); Eosinophils % 4.7 % (0-4.4); Hematocrit 48.6 % (39.6-49.0); Hemoglobin 16.9 g/dL (13.6-17.9); Lymphocytes % 26.1 % (15.3-44.8); MCH 30.5 pg (27.0-35.0); MCHC 34.8 g/dL (32.0-36.0); MCV 87.4 fL (80-100); MPV 8.2 fL (7.6-11.3); Neutrophils % 61.3 % (41.7-73.7); Platelets 235 thou/uL (152-406); RBC Red Blood Cell Count 5.56 M/uL (4.33-5.43); Red Cell Distribution Width 14.6 % (12.1-15.2)
[2024-08-11 06:32] LABS: Anion Gap 5.9 mEq/L (5.0-15.0); Magnesium 2.2 mg/dL (1.6-2.4); Phosphorus 2.6 mg/dL (2.5-4.9); Potassium 3.9 mEq/L (3.5-5.1); Thyroid Stimulating Hormone 0.886 uIU/mL (0.358-3.740)
[2024-08-11] MEDS: KCL 20 MEQ/100 mL IVPB 20 MEQ/100 ML BAG IV SCH (08:00)
[2024-08-11] MEDS: ASPIRIN EC 81 MG TAB PO SCH (08:31)
--- NOTE | 2024-08-11 10:19 | P.PN ---
Subjective Date of Service: 08/11/24 Chief Complaint: Chest pain r/o Subjective: No new changes, No C/O voiced, Tolerating diet, Ambulating, Improving Review of Systems 10-point ROS is otherwise unremarkable Physical Examination - Vital Signs Temperature: 97.6 F Blood Pressure: 137/94 Pulse: 83 Respirations: 16 Pulse Ox (%): 94 - Physical Exam General: Alert, In no apparent distress HEENT: Atraumatic, PERRLA, EOMI Neck: Supple, JVD not distended Respiratory: Clear to auscultation bilaterally, Normal air movement Cardiovascular: Regular rate/rhythm, Normal S1 S2 Gastrointestinal: Normal bowel sounds, No tenderness Musculoskeletal: No tenderness Integumentary: No rashes Neurological: Normal speech, Normal tone, Normal affect Lymphatics: No axilla or inguinal lymphadenopathy - Studies Laboratory Data (last 24 hrs) 08/10/24 08/10/24 08/10/24 10:20 10:20 10:20 WBC 6.80 Hgb 18.5 H Hct 51.7 H Plt Count 257 PT 12.1 INR 1.06 Sodium 137 Potassium 3.5 BUN 12 Creatinine 1.24 Glucose 118 H Magnesium 2.1 Total Bilirubin 0.9 AST 18 ALT 36 Alkaline Phosphatase 87 Medications List Reviewed: Yes Assessment And Plan - Current Problems (Diagnosis) (1) Chest pain Current Visit: Yes Status: Acute Plan: patient is getting a stress test get echo continue ASA 81 mg daily lipitor 40 mg daily (2) HLD (hyperlipidemia) Current Visit: Yes Status: Acute Plan: LDL 140 continue lipitor 40 mg daily (3) History of substance abuse Current Visit: Yes Status: Acute Plan: patient say he has been clean for 4 years, advise to continue to avoid it
--- NOTE | 2024-08-11 11:04 | RAD REPORT ---
EXAM: Nuclear medicine cardiac perfusion examination with ejection fraction HISTORY: Chest pain chest pain TECHNIQUE: Rest images: 10.4 mCi technetium 99m sestamibi Stress images: 29.2 mCi of technetium 99m sestamibi COMPARISON: None. FINDINGS: Tomographic images: No fixed or reversible perfusion defects. No finding to suspect hibernating myocardium. Ejection fraction of 48%. EDV: 101 mL ESV: 53 mL LHR: 0.44 TID: 0.95 IMPRESSION: No evidence of stress induced ischemia.
--- NOTE | 2024-08-11 11:43 | EKG ---
Test Date: 2024-08-10 Test Time: 10:14:37 Bioinformatics Associate: TRAVIS MEASUREMENT RESULTS: Intervals: Rate: 91 AR: 134 QRSD: 94 QT: 376 QTc: 462 Lee: P: 44 AR: 134 QRS: -16 T: 40 INTERPRETIVE STATEMENTS: Normal sinus rhythm Normal ECG Compared to ECG 10/02/2020 02:25:55 Left ventricular hypertrophy no longer present Myocardial infarct finding no longer present Electronically Signed On 08-11-24 11:40:19 CDT by Atif Hernandez
--- NOTE | 2024-08-11 12:16 | TREADMILL ---
70% H.R.: 85% H.R.: 138 90% H.R.: 100% H.R.: DX: CHEST PAIN Date of Study: 08/11/2024 Ht: 6' 2 " Wt: 225 lb 0 oz Consulting Physician: LUISA MARIE MD MEDICATIONS: TYLENOL, ASPIRIN, LIPITOR, NITROSTAT HISTORY: HISTORY OF SLEEP APNEA. FAMILY HISTORY OF DIABETES MELLITUS, HEART ATTACK DISEASE PHYSICIAL EXAMINATION: RESTING B.P.: 146/97 RESTING H.R.: 81 RESTING EKG: SINUS RHYTHM PROTOCOL: MYOVIEW EXERCISE TIME: 10:40 MAXIMUM HEART RATE: 141 86 % OF PREDICTED B.P. AT PEAK STRESS: 181/97 H.R. AT 1 MINUTE POST EXERCISE: 140 IMPRESSION: MYOVIEW CARDIOLITE STRESS TEST WAS PERFORMED ORDERED. CARDIOLITE INJECTED - SEE NUCLEAR MEDICINE REPORT. NO SUPRAVENTRICULAR TACHYCARDIA, VENTRICULAR TACHYCARDIA, OR ARRHYTHMIAS NOTED. NO CONCERS WITH SHORTNEES OF BREATH OR CHEST PAIN.
--- NOTE | 2024-08-11 16:11 | P.DS ---
Admission Date: 08/10/24 Discharge Date: 08/11/24 Disposition: ROUTINE DISCHARGE Discharge Condition: GOOD Reason for Admission: Chest pain r/o Brief History of Present Illness: Tariq Preston is a 58 year old male with no pmhx who presents to the ED with chest pain radiating from the left axilla across the left chest intermittently that started this morning. He denies chest pain in the past but reports a family history of CABG with his grandmother. On evaluation, chest pain has resolved, lung sounds clear. On evaluation, chest pain resolved, lung sounds clear, no acute distress. Laboratory evaluation significant for H&H 18/51, GFR 68, serum glucose 118. chest x-ray reports "The lungs are well inflated and clear. No pneumothorax or sizable effusion. The heart is normal in size. Mediastinal contours are unremarkable" Tariq will be admitted to hospitalist service for further evaluation of chest pain, Dr. Hernandez consulted. Vital Signs/Physical Exam: Temp Pulse Resp BP Pulse Ox 97.9 F 89 16 143/90 H 93 08/11/24 12:00 08/11/24 12:00 08/11/24 12:00 08/11/24 12:00 08/11/24 12:00 Laboratory Data at Discharge: WBC 7.00 thou/uL (4.3-10.9) 08/11/24 05:48 Hgb 16.9 g/dL (13.6-17.9) D 08/11/24 05:48 Hct 48.6 % (39.6-49.0) 08/11/24 05:48 Plt Count 235 thou/uL (152-406) 08/11/24 05:48 PT 12.1 SECONDS (10-13.0) 08/10/24 10:20 INR 1.06 08/10/24 10:20 Sodium 140 mEq/L (136-145) 08/11/24 05:48 Potassium 3.9 mEq/L (3.5-5.1) 08/11/24 05:48 BUN 11 mg/dL (7-18) 08/11/24 05:48 Creatinine 1.10 mg/dL (0.70-1.30) 08/11/24 05:48 Glucose 102 mg/dL (74-106) 08/11/24 05:48 Phosphorus 2.6 mg/dL (2.5-4.9) 08/11/24 05:48 Magnesium 2.2 mg/dL (1.6-2.4) 08/11/24 05:48 Total Bilirubin 0.9 mg/dL (0.2-1.0) 08/10/24 10:20 AST 18 U/L (15-37) 08/10/24 10:20 ALT 36 U/L (16-61) 08/10/24 10:20 Alkaline Phosphatase 87 U/L (45-117) 08/10/24 10:20 Triglycerides 109 mg/dL (<150) 08/11/24 05:48 Cholesterol 201 mg/dL (<200) H 08/11/24 05:48 HDL Cholesterol 33 mg/dL (40-60) L 08/11/24 05:48 Cholesterol/HDL Ratio 6.09 08/11/24 05:48 Home Medications: Aspirin [Aspirin EC 81 MG] 81 mg PO DAILY 30 Days #30 tab 08/11/24 Atorvastatin Calcium [Lipitor] 40 mg PO BEDTIME 30 Days #30 tab 08/11/24 New Medications: Aspirin [Aspirin EC 81 MG] 81 mg PO DAILY 30 Days #30 tab Atorvastatin Calcium [Lipitor] 40 mg PO BEDTIME 30 Days #30 tab Physician Discharge Instructions: 1. Please call and schedule a follow-up appointment with your PCP in 3-5 days - Please follow-up with your PCP for medication refills/adjustments 2. Please call and schedule a follow-up appointment with Dr. Hernandez in 1 week -review your stress test and ECHO -continue further monitoring/management 3. Continue heart healthy diet 4. No activity restrictions 5. Return to the ED if symptoms worsen New medications Atorvastatin 40 mg daily x 30 days Aspirin 81 mg daily x 30 days Diet: AHA Activity: Ad esmer Followup: NONE,NONE [Primary Care Provider] -
[2024-08-11 17:56] VITALS: BP 137/90; TEMP 97.8
--- NOTE | 2024-08-12 14:53 | ECHO ---
HEIGHT: 6 ft 2 in WEIGHT: 225 lb 0 oz DATE OF STUDY: 08/11/[address]: Barbie Lopez NP 2-DIMENSIONAL: YES M.MODE: YES DOPPLER: YES COLOR FLOW: YES TDS: NO PORTABLE: YES DEFINITY: NO BUBBLE STUDY: NO DIAGNOSIS: CHEST PAIN CARDIAC HISTORY: CATHERIZATION: SURGERY: PROSTHETIC VALVE: PACEMAKER: MEASUREMENTS (cm) DIASTOLIC (NORMALS) SYSTOLIC (NORMALS) IVSd 1.0 (0.6-1.2) LA Diam 3.7 (1.9-4.0) LVEF 55-60% LVIDd 4.0 (3.5-5.7) LVIDs 2.8 (2.0-3.5) %FS 30% LVPWd 1.1 (0.6-1.2) Ao Diam 3.8 (2.0-3.7) 2 DIMENSIONAL ASSESSMENT: RIGHT ATRIUM: NORMAL LEFT ATRIUM: NORMAL RIGHT VENTRICLE: NORMAL LEFT VENTRICLE: NORMAL TRICUSPID VALVE: MILD TRICUSPID REGURGITATION MITRAL VALVE: MILD MITRAL REGURGITATION PULMONIC VALVE: NORMAL AORTIC VALVE: MILD AORTIC INSUFFICIENCY PERICARDIAL EFFUSION: NONE AORTIC ROOT: MILDLY DILATED LEFT VENTRICULAR WALL MOTION: NORMAL. DOPPLER/COLOR FLOW: SEE BELOW. COMMENTS: 1. NORMAL LEFT VENTRICULAR EJECTION FRACTION 55-60% WITH NORMAL WALL MOTION. 2. GRADE I DIASTOLIC DYSFUNCTION. 3. MILD (MITRAL AND TRICUSPID REGURGITATION, AORTIC INSUFFICIENCY). TECHNOLOGIST: ELIDA MARRUFO
== END 2024-08-11 18:41 | disposition home or self-care (01) ==
LOC: ER 09:36 → ERHOLD 13:19 → 2ND 14:42
PROVIDERS: ADMIT Hospitalist; ATTEND Hospitalist
DX: R07.9 Chest pain, unspecified (principal); E78.5 Hyperlipidemia, unspecified; F15.11 Other stimulant abuse, in remission; R51.9 Headache, unspecified; Z87.891 Personal history of nicotine dependence; Z95.1 Presence of aortocoronary bypass graft; Z79.82 Long term (current) use of aspirin
CPT/HCPCS: 36415; 70450; 71045; 72125; 78452; 80048; 80061; 80076; 83036; 83735; 83880; 84100; 84439; 84443; 84484; 85025; 85610; 93005; 93017; 93306; 96361; 96372; 96374; 99285; A9500; G0378; J1650; J7030

== ENCOUNTER 2025-01-20 03:03 | Emergency (ER) | payer SELFPAY ==
--- OUTSIDE RECORDS SUMMARY | 2025-01-20 03:08 | XMS REPORT | Continuity of Care Document ---
Author Name Unknown Address [address] [facility] [place] [address] [facility] [place] Address [address] [facility] [place] [address] Care Team Providers Care Business Planning Manager Name Role Phone SARA ONTIVEROS Primary Care Physician Unavailab le Doctor Unassigned, Ollie Attending Clinician U GARRETT Lemos Attending Clinician Unavailable GARRETT HUFFMAN Attending Clinician Unavailable INDIA GAMBINO Attending Clinician UnavailINDIA Lombardi Attending Clinician Unavaila Evelyn Simental Attending Clinician Unavaila camila Doctor Unassigned, Ollie Attending Clinician U SARA Mercedes Attending Clinician Unavailable Pauly Woodall MD Attending Clinician [phone] [facility] Sleep Lab Bed Attending Clinician Unavail able India Gambino MD Attending Clinician Sara Ludwig Attending Clinician [phone] Lab, Ang - Db Attending Clinician Unavailable VICKIE KEATING Attending Clinician Unavailable TYRONE SHEPARD Attending Clinician Unavailable NUSRAT FRIEND Attending Clinician Unavailable GARRETT HUFFMAN Admitting Clinician Unavailable Payers Payer Name Policy Type Policy Number Effective Date Expirati on Date Source Problems Condition Name Condition Details Condition Category Status Onset Date Resolution Date Last Treatment Date Treating Clinician Comments Source No known active problems No known active problems Disease [facility] Allergies, Adverse Reactions, Alerts Allergy Name Allergy Type Status Severity Reaction(s) Onset Date Inactive Date Treating Clinician Comments Source POLLEN EXTRACTS DRUG INGREDI Active Med Other-Cmnt 09-25 00:00: 00 [facility] Pollen Extracts Propensi ty to adverse reaction s Active Other - See comments 09-25 00:00: 00 [facility] NO KNOWN ALLERGIE S Drug Class Active [facility] Social History Social Habit Start Date Stop Date Quantity Comments Source Gender identity [facility] Sexual orientation [facility] Alcoholic beverage intake 2024-11-14 00:00:00 2024-11-14 00:00:00 Lifetime non-drinker (finding) [facility] Alcohol intake 2022-09-25 00:00:00 2022-09-25 00:00:00 Lifetime non-drinker (finding) [facility] Exposure to SARS-CoV-2 (event) 2022-04-05 00:00:00 2022-04-15 13:14:00 Not sure [facility] Tobacco use and exposure 2022-04-10 00:00:00 2022-04-10 00:00:00 Smokeless tobacco non-user [facility] History of tobacco use 2021-11-01 00:00:00 Cigarette Smoker [facility] Tobacco Comment 2021-10-24 00:00:00 2021-10-24 00:00:00 Patient trying to quit, currently smokes 1 cigarette/ day. [facility] History of Social function 2021-10-03 00:00:00 2021-10-03 00:00:00 [facility] Sex assigned at 1965 00:00:00 1965 00:00:00 [facility] Smoking Status Start Date Stop Date Source Ex-smoker 2022-04-10 00:00:00 2022-04-10 00:00:00 [facility] Smokes tobacco daily 2021-10-24 00:00:00 [facility] Medications Ordered Medication Name Filled Medication Name Start Date Stop Date Current Medication? Ordering Clinician Indication Dosage Frequency Signature (SIG) Comments Components Source ketorolac (TORADOL) injection 15 mg 11-14 22:45: 00 11-14 22:06 :00 No 15mg 15 mg, Intramuscu lar, ONCE, 1 dose, On Thu11/14/24 at 1745, Routine [facility] dexamethaso ne sod phos PF injection 10 mg 11-14 22:15: 00 11-14 22:08 :00 No 10mg 10 mg, Intramuscu lar, ONCE, 1 dose, On Thu11/14/24 at 1715, 1 mL [facility] HYDROcodone -acetaminop hen (NORCO 5) 5-325 mg tablet 1 tablet 11-14 22:15: 00 11-14 22:06 :00 No 1{tbl} 1 tablet, Oral, ONCE, 1 dose, On Thu11/14/24 at 1715, [place] [facility] traMADoL 50 mg tablet 11-14 00:00: 00 11-20 04:59 :00 Yes [id number] 50mg Take 1 tablet by mouth every 6 hours as needed for Pain (scale 7-10) for up to 5 days. [facility] methocarbam oL 750 mg tablet 11-14 00:00: 00 11-20 04:59 :00 Yes [id number] 750mg Take 1 tablet by mouth 4 times daily for 5 days. [facility] ergocalcife rol, vitamin d2, 1,250 mcg (50,000 unit) capsule 11-14 00:00: 00 Yes [id number] Take 1 capsule by mouth weekly. [facility] naproxen 500 mg tablet 11-14 00:00: 00 Yes [id number] 500mg Take 1 tablet by mouth 2 (two) times daily as needed for Pain (scale 4-6) (use spraignly due to side effects). [facility] famotidine 40 mg tablet 09-25 00:00: 00 03-25 05:59 :00 No [id number] 40mg Take 1 tablet by mouth at bedtime for 180 days. [facility] ergocalcife rol, vitamin d2, 1,250 mcg (50,000 unit) capsule 04-16 00:00: 00 11-14 00:00 :00 No [id number] 68023H Take 1 capsule by mouth weekly. [facility] naproxen 500 mg tablet 10-24 00:00: 00 11-14 00:00 :00 No [id number] 500mg Take 1 tablet by mouth 2 (two) times daily as needed for Pain (scale 4-6) (use spraignly due to side effects). [facility] tiZANidine 4 mg tablet 10-24 00:00: 00 09-25 00:00 :00 No [id number] 4mg Take 1 tablet by mouth 3 (three) times daily as needed for Pain (scale 7-10). [facility] methylPREDN ISolone 4 mg tablets 10-24 00:00: 00 10-31 04:59 :00 No [id number] Take by mouth SEE-INSTRU CTIONS for 6 days. follow package directions [facility] Vital Signs Vital Name Observation Time Observation Value Comments S ource Systolic blood pressure 2024-11-15 00:02:00 134 mm[Hg] [facility] Diastolic blood pressure 2024-11-15 00:02:00 94 mm[Hg] [facility] Heart rate 2024-11-15 00:02:00 96 /min [facility] Body temperature 2024-11-15 00:02:00 36.56 Angelika [facility] Respiratory rate 2024-11-15 00:02:00 19 /min [facility] Oxygen saturation in Arterial blood by Pulse oximetry 2024-11-15 00:02:00 92 /min [facility] Body height 2024-11-14 22:00:00 188 cm [facility] Body weight 2024-11-14 22:00:00 102.059 kg [facility] BMI 2024-11-14 22:00:00 28.89 kg/m2 [facility] Body temperature 2022-09-25 14:45:00 36.61 Angelika [facility] Body height 2022-09-25 14:45:00 188 cm [facility] Body weight 2022-09-25 14:45:00 107.684 kg [facility] BMI 2022-09-25 14:45:00 30.48 kg/m2 [facility] Systolic blood pressure 2022-04-10 20:30:00 135 mm[Hg] [facility] Diastolic blood pressure 2022-04-10 20:30:00 88 mm[Hg] [facility] Heart rate 2022-04-10 20:30:00 88 /min [facility] Body temperature 2022-04-10 20:30:00 36.78 Angelika [facility] Respiratory rate 2022-04-10 20:30:00 20 /min [facility] Body height 2022-04-10 20:30:00 188 cm [facility] Body weight 2022-04-10 20:30:00 105.87 kg [facility] BMI 2022-04-10 20:30:00 29.97 kg/m2 [facility] Oxygen saturation in Arterial blood by Pulse oximetry 2022-04-10 20:30:00 96 /min [facility] Respiratory rate 2021-10-24 16:11:00 18 /min [facility] Body height 2021-10-24 16:11:00 188 cm [facility] Body weight 2021-10-24 16:11:00 98.657 kg [facility] BMI 2021-10-24 16:11:00 27.93 kg/m2 [facility] Oxygen saturation in Arterial blood by Pulse oximetry 2021-10-24 16:11:00 97 /min [facility] Systolic blood pressure 2021-10-24 16:11:00 123 mm[Hg] [facility] Diastolic blood pressure 2021-10-24 16:11:00 85 mm[Hg] [facility] Heart rate 2021-10-24 16:11:00 75 /min [facility] Body temperature 2021-10-24 16:11:00 36.67 Angelika [facility] Procedures Procedure Date / Time Performed Performing Clinician Source XR ELBOW >3 VW RIGHT 2024-11-14 22:48:42 Garrett Huffman [facility] XR FOREARM 2 VW RIGHT 2024-11-14 22:48:42 Annika Huffman [facility] XR HUMERUS 2 VW RIGHT 2024-11-14 22:48:42 Annika Huffman [facility] XR SHOULDER 2+ VW RIGHT 2024-11-14 22:48:42 Shay Huffman [facility] XR WRIST 3+ VW RIGHT 2024-11-14 22:48:42 Garrett Huffman [facility] INSURANCE CORRESPONDENCE 2023-02-04 05:01:00 Doc tor Unassigned, Ollie [facility] SLEEP STUDY DATA REPORT 2022-11-14 05:01:00 Doct or Unassigned, Ollie [facility] REFERRAL- REQUEST/RESPONSE 2022-05-06 06:01:00 Doctor Unassigned, Ollie [facility] COMP. METABOLIC PANEL ([id number]) 2022-04-15 19:35:00 Sara Ontiveros [facility] CBC WITH DIFF 2022-04-15 19:35:00 Sara Ontiveros [facility] Encounters Start Date/Time End Date/Time Encounter Type Admission Type Attending Clinicians Care Facility Care Department Encounter ID Source 2024-12-02 00:00:00 2025-01-07 18:26:32 Patient Secure Msg Doctor Unassigned, Ollie Doctor Unassigned, Ollie [facility] [id number] 350.1.13.10 4.2.7.2.686 [id number] [facility] 2025-01-05 00:00:00 2025-01-05 00:00:00 Outpatient [facility] [id number] [facility] 2024-12-20 00:00:00 2024-12-20 00:00:00 Outpatient [facility] [id number] [facility] 2024-11-14 17:01:00 2024-11-14 19:04:00 Emergency X GARRETT HUFFMAN JOSHUA [facility] ERT [id number] [facility] 2023-04-25 20:00:00 2023-04-25 20:00:00 Outpatient INDIA CHATTERJEE STRAPRShae [facility] [id number] [facility] 2023-02-13 00:00:00 2023-02-13 00:00:00 Telephone Evelyn Carrizales 1.2.840.114 350.1.13.10 4.2.7.2.686 [id number] [facility] 2023-02-12 20:00:00 2023-02-12 20:00:00 Outpatient INDIA CHATTERJEE [facility] [id number] [facility] 2023-02-11 20:00:00 2023-02-11 20:00:00 Outpatient INDIA CHATTERJEE [facility] [id number] [facility] 2023-02-04 00:00:00 2023-02-04 00:00:00 Orders Only Doctor Unassigned, Ollie [facility] 1.2840.114 350.1.13.10 4.2.7.2.686 [id number] [facility] 2023-01-20 00:00:00 2023-01-20 00:00:00 Telephone Evelyn Carrizales 1.2.840.114 350.1.13.10 4.2.7.2.686 [id number] [facility] 2023-01-15 09:00:00 2023-01-15 09:00:00 Outpatient SARA GUTIERREZ [facility] [id number] [facility] 2023-01-08 11:30:00 2023-01-08 11:30:00 Outpatient SARA GUTIERREZ [facility] [id number] [facility] 2022-12-31 00:00:00 2022-12-31 00:00:00 Telephone Pauly Woodall [facility] 1.2.840.114 350.1.13.10 4.2.7.2.686 [id number] [facility] 2022-11-14 20:00:00 2022-11-14 22:30:00 Motor Vehicle Examiner Visit 1, [facility] Sleep Lab Bed India Gambino [facility] 1.2840.114 350.1.13.10 4.2.7.2.686 [id number] [facility] 2022-11-14 20:00:00 2022-11-14 20:00:00 Outpatient R INDIA GAMBINO STRAPRShae [facility] [id number] [facility] 2022-11-14 00:00:00 2022-11-14 00:00:00 Reflindsey Ontiveros [facility] 1.2840.114 350.1.13.10 4.2.7.2.686 [id number] [facility] 2022-11-14 00:00:00 2022-11-14 00:00:00 William Ontiveros [facility] 1.2840.114 350.1.13.10 4.2.7.2.686 [id number] [facility] 2022-11-14 00:00:00 2022-11-14 00:00:00 Orders Only Doctor Unassigned, Ollie [facility] 1.2.840.114 350.1.13.10 4.2.7.2.686 [id number] [facility] 2022-09-25 09:45:00 2022-09-25 10:00:00 Office Visit Pauly Woodall [facility] [place] 1.0.114 350.1.13.10 4.2.7.2.686 [id number] [facility] 2022-09-25 09:45:00 2022-09-25 09:45:00 Outpatient R ALPESHFARRUKHPAULY [facility] [id number] [facility] 2022-09-11 15:15:00 2022-09-11 15:15:00 [facility] [id number] [facility] 2022-05-06 00:00:00 2022-05-06 00:00:00 Orders Only Doctor Unassigned, Ollie [facility] 1..114 350.1.13.10 4.2.7.2.686 [id number] [facility] 2022-04-30 00:00:00 2022-04-30 00:00:00 Telephone Evelyn Carrizales [facility] 1..114 350.1.13.10 4.2.7.2.686 [id number] [facility] 2022-04-25 00:00:00 2022-04-25 00:00:00 Telephone Rama [facility] 1.84114 350.1.13.10 4.2.7.2.686 [id number] [facility] 2022-04-15 13:15:00 2022-04-15 13:30:02 [facility] [id number] [facility] 2022-04-15 13:15:00 2022-04-15 13:30:02 Motor Vehicle Examiner Visit Lab, Adair Ontiveros [facility] 1.84114 350.1.13.10 4.2.7.2.686 [id number] [facility] 2022-04-10 14:30:00 2022-04-10 15:28:58 Outpatient R SARA ONTIVEROS [facility] [id number] [facility] 2022-04-10 14:30:00 2022-04-10 15:28:58 Office Visit Rama [facility] 1..840.114 350.1.13.10 4.2.7.2.686 [id number] [facility] 2021-12-10 08:45:00 2021-12-10 08:45:00 Outpatient R VICKIE KEATING [facility] [id number] [facility] 2021-11-29 12:30:00 2021-11-29 12:30:00 Outpatient R TYRONE SHEPARD [facility] [id number] [facility] 2021-11-27 11:30:00 2021-11-27 11:30:00 Outpatient NUSRAT MOCK [facility] [id number] [facility] 2021-11-19 14:00:00 2021-11-19 14:00:00 Outpatient NUSRAT MOCK [facility] [id number] [facility] 2021-11-05 14:30:00 2021-11-05 14:30:00 Outpatient NUSRAT MOCK [facility] [id number] [facility] 2021-10-24 13:00:00 2021-10-24 23:59:00 Outpatient R RAMASARA [facility] [id number] [facility] 2021-10-24 11:45:00 2021-10-24 12:00:00 Motor Vehicle Examiner Visit Lab, Adair Piper Rama [facility] 1.2.840.114 350.1.13.10 4.2.7.2.686 [id number] [facility] 2021-10-24 11:00:00 2021-10-24 11:44:18 Outpatient R SARA ONTIVEROS [facility] [id number] [facility] 2021-10-24 11:00:00 2021-10-24 11:44:18 [facility] 1.840.114 350.1.13.10 4.2.7.2.686 [id number] [facility] 2021-10-17 11:30:00 2021-10-17 11:30:00 Outpatient R SARA ONTIVEROS [facility] [id number] [facility] 2021-10-15 16:30:00 2021-10-15 16:30:00 Outpatient R NUSRAT FRIEND [facility] [id number] [facility] 2021-10-15 16:30:00 2021-10-15 16:30:00 Outpatient R NUSRAT FRIEND [facility] [id number] [facility] 2021-10-11 00:00:00 2021-10-11 00:00:00 [facility] 1.84.114 350.1.13.10 4.2.7.2.686 [id number] [facility] 2021-10-09 00:00:00 2021-10-09 00:00:00 [facility]phone [facility] 1.840.114 350.1.13.10 4.2.7.2.686 [id number] [facility] 2021-10-03 10:30:00 2021-10-03 11:43:54 [facility] B[facility]JI [facility] 1.84.114 350.1.13.10 4.2.7.2.686 [id number] [facility] 2021-10-03 10:30:00 2021-10-03 11:43:54 Outpatient R SARA ONTIVEROS [facility] [id number] [facility] 2021-10-03 10:30:00 2021-10-03 11:43:54 [facility] [id number] [facility] 2021-10-03 00:00:00 2021-10-03 00:00:00 Telephone Sara Ontiveros [facility] BENJI MCKAY?[facility] 1.2.840.114 350.1.13.10 4.2.7.2.686 [id number] [facility] Results Test Description Test Time Test Comments Results Result Comments Source XR SHOULDER 2+ VW RIGHT 23:54:47 EXAM: XR WRIST 3+ VW RIGHTEXAM: XR FOREARM 2 VW RIGHTEXAM: XR ELBOW 3+ VW RIGHTEXAM: XR HUMERUS 2 VW RIGHTEXAM: XR SHOULDER 2+ VW RIGHT HISTORY: FOOSH COMPARISON: None available. FINDINGS: Radiographs of the right shoulder, humerus, elbow, forearm and wristdemonstrate a comminuted and displaced fracture of the radial head.Suspected minimally displaced fracture of the coronoid process of the ulna.Chronic appearing avulsion injuries of the medial and lateral epicondylesof the elbow. Chronic deformity fracture of the fifth metatarsus chronicfracture deformity of the right proximal humerus is noted with mildglenohumeral joint space loss, subchondral sclerosis, and osteophytosis isnoted. Moderate osteoarthritic changes of acromioclavicular joint is seenin form of marginal osteophytosis, subchondral sclerosis and joint spacenarrowing. Swelling of the overlying soft tissue of the acromioclavicularjoint is noted. [facility] XR HUMERUS 2 VW RIGHT 23:54:47 EXAM: XR WRIST 3+ VW RIGHTEXAM: XR FOREARM 2 VW RIGHTEXAM: XR ELBOW 3+ VW RIGHTEXAM: XR HUMERUS 2 VW RIGHTEXAM: XR SHOULDER 2+ VW RIGHT HISTORY: FOOSH COMPARISON: None available. FINDINGS: Radiographs of the right shoulder, humerus, elbow, forearm and wristdemonstrate a comminuted and displaced fracture of the radial head.Suspected minimally displaced fracture of the coronoid process of the ulna.Chronic appearing avulsion injuries of the medial and lateral epicondylesof the elbow. Chronic deformity fracture of the fifth metatarsus chronicfracture deformity of the right proximal humerus is noted with mildglenohumeral joint space loss, subchondral sclerosis, and osteophytosis isnoted. Moderate osteoarthritic changes of acromioclavicular joint is seenin form of marginal osteophytosis, subchondral sclerosis and joint spacenarrowing. Swelling of the overlying soft tissue of the acromioclavicularjoint is noted. [facility] XR ELBOW >3 VW RIGHT 23:54:47 EXAM: XR WRIST 3+ VW RIGHTEXAM: XR FOREARM 2 VW RIGHTEXAM: XR ELBOW 3+ VW RIGHTEXAM: XR HUMERUS 2 VW RIGHTEXAM: XR SHOULDER 2+ VW RIGHT HISTORY: FOOSH COMPARISON: None available. FINDINGS: Radiographs of the right shoulder, humerus, elbow, forearm and wristdemonstrate a comminuted and displaced fracture of the radial head.Suspected minimally displaced fracture of the coronoid process of the ulna.Chronic appearing avulsion injuries of the medial and lateral epicondylesof the elbow. Chronic deformity fracture of the fifth metatarsus chronicfracture deformity of the right proximal humerus is noted with mildglenohumeral joint space loss, subchondral sclerosis, and osteophytosis isnoted. Moderate osteoarthritic changes of acromioclavicular joint is seenin form of marginal osteophytosis, subchondral sclerosis and joint spacenarrowing. Swelling of the overlying soft tissue of the acromioclavicularjoint is noted. [facility] XR FOREARM 2 VW RIGHT 23:54:47 EXAM: XR WRIST 3+ VW RIGHTEXAM: XR FOREARM 2 VW RIGHTEXAM: XR ELBOW 3+ VW RIGHTEXAM: XR HUMERUS 2 VW RIGHTEXAM: XR SHOULDER 2+ VW RIGHT HISTORY: FOOSH COMPARISON: None available. FINDINGS: Radiographs of the right shoulder, humerus, elbow, forearm and wristdemonstrate a comminuted and displaced fracture of the radial head.Suspected minimally displaced fracture of the coronoid process of the ulna.Chronic appearing avulsion injuries of the medial and lateral epicondylesof the elbow. Chronic deformity fracture of the fifth metatarsus chronicfracture deformity of the right proximal humerus is noted with mildglenohumeral joint space loss, subchondral sclerosis, and osteophytosis isnoted. Moderate osteoarthritic changes of acromioclavicular joint is seenin form of marginal osteophytosis, subchondral sclerosis and joint spacenarrowing. Swelling of the overlying soft tissue of the acromioclavicularjoint is noted. [facility] XR WRIST 3+ VW RIGHT 23:54:47 EXAM: XR WRIST 3+ VW RIGHTEXAM: XR FOREARM 2 VW RIGHTEXAM: XR ELBOW 3+ VW RIGHTEXAM: XR HUMERUS 2 VW RIGHTEXAM: XR SHOULDER 2+ VW RIGHT HISTORY: FOOSH COMPARISON: None available. FINDINGS: Radiographs of the right shoulder, humerus, elbow, forearm and wristdemonstrate a comminuted and displaced fracture of the radial head.Suspected minimally displaced fracture of the coronoid process of the ulna.Chronic appearing avulsion injuries of the medial and lateral epicondylesof the elbow. Chronic deformity fracture of the fifth metatarsus chronicfracture deformity of the right proximal humerus is noted with mildglenohumeral joint space loss, subchondral sclerosis, and osteophytosis isnoted. Moderate osteoarthritic changes of acromioclavicular joint is seenin form of marginal osteophytosis, subchondral sclerosis and joint spacenarrowing. Swelling of the overlying soft tissue of the acromioclavicularjoint is noted. [id number]-15 22:48:08* Test Item Value Reference Range Interpretation Comme nts NA (test code = 2674417318) 138 mmol/L 135-145 K (test code = 4446299384) 4.6 mmol/L 3.5-5.0 CL (test code = 4667560021) 104 mmol/L 98-108 CO2 TOTAL (test code = 1798887949) 27 mmol/L 23-31 AGAP (test code = 6448455750) 2-16 BUN (test code = 2339918038) 11 mg/dL 7-23 GLUCOSE (test code = 8845546168) 97 mg/dL 70-110 CREATININE (test code = 7241909874) 1.07 mg/dL 0.60-1.25 TOTAL BILI (test code = 2213407377) 0.6 mg/dL 0.1-1.1 CALCIUM (test code = 3049413059) 8.9 mg/dL 8.6-10.6 T PROTEIN (test code = 8804119558) 7.5 g/dL 6.3-8.2 ALBUMIN (test code = 3053333724) 4.5 g/dL 3.5-5.0 ALK PHOS (test code = 9833155429) 107 U/L 34-122 ALTv (test code = 1742-6) 55 U/L 5-50 H AST(SGOT) (test code = 3054570365) 42 U/L 13-40 H eGFR (test code = 4522500569) mL/min/1.73m2 MAIKOL (test code = MAIKOL) Association [...] imaging tests). Lab Interpretation (test code = 37987-6) Abnormal [facility] [id number] 07:58:05* Test Item Value Reference Range Interpretation Comme nts CHOLESTEROL (test code = 2210) 214 MG/DL <200 H TRIGLYCERIDES (test code = 2232) 123 MG/DL <150 HDL CHOLESTEROL (test code = 2220) 34 MG/DL >39 L CALC LDL CHOL (test code = 2237) 155 MG/DL <100 H NOTE: CALCULATED LDL IS BASED ON RSOY-DENISE METHOD WHICHINCLUDES ADJUSTABLE TRIGLYCERIDE:VLDL CHOLESTEROL RATIO.THIS FACTOR VARIES BY MEASURED TRIGLYCERIDE AND NON-HDLCHOLESTEROL CONCENTRATIONS WITH INCREASED CALCULATED LDL SEENIN HIGHER TRIGLYCERIDE OR LOWER NON-HDL SPECIMENS. FOR MOREINFORMATION, SEE CLIENT ANNOUNCEMENT AT [email or web address] RISK RATIO LDL/HDL (test code = 2238) 4.56 RATIO <3.55 H COMPREHENSIVE METABOLIC [id number] 07:58:05* Test Item Value Reference Range Interpretation Comme nts GLUCOSE (test code = 2217) 93 MG/DL 70-99 BUN (test code = 2208) 13 MG/DL 6-20 CREATININE (test code = 2214) 1.08 MG/DL 0.80-1.40 eGFR (2020 CKD-EPI) (test code = 64769) 82 ML/MIN/1.73 >60 CALC BUN/CREAT (test code = 2235) 12 RATIO 6-28 SODIUM (test code = 223) 141 MEQ/L 133-146 POTASSIUM (test code = 2228) 4.1 MEQ/L 3.5-5.4 CHLORIDE (test code = 2215) 105 MEQ/L 95-107 CARBON DIOXIDE (test code = 2206) 22 MEQ/L 19-31 CALCIUM (test code = 2209) 9.1 MG/DL 8.5-10.5 PROTEIN, TOTAL (test code = 222) 7.0 G/DL 6.1-8.3 ALBUMIN (test code = 220) 4.0 G/DL 3.5-5.2 CALC GLOBULIN (test code = 2240) 3.0 G/DL 1.9-3.7 CALC A/G RATIO (test code = 2234) 1.3 RATIO 1.0-2.6 BILIRUBIN, TOTAL (test code = 2207) 0.4 MG/DL See_Comment [Automated me ssage] The system which generated this result transmitted reference range: <=1.2. The reference range was not used to interpret this result as normal/abnormal. ALKALINE PHOSPHATASE (test code = 2204) 85 U/L 40-121 AST (test code = 2218) 15 U/L 9-50 ALT (test code = 2219) 20 U/L 5-50 [id number] 06:51:08* Test Item Value Reference Range Interpretation Comme nts RPR RESULT (test code = 3501) NON-REACTIVE NON-REACTIVE RPR TITER (test code = 3500) NOT INDIC. TITER NOT INDIC. HIV 1/2 4TH GEN, RFLX [id number] 05:47:42* Test Item Value Reference Range Interpretation Comme nts HIV 1/2 4TH GEN, RFLX CONF ( test code = 3514) NON-REACTIVE NON-REACTIVE HEPATITIS PANEL, [id number] 05:47:42* Test Item Value Reference Range Interpretation Comme nts HEPATITIS A IgM (test code = 99266) NON-REACTIVE NON-REACTIVE HEPATITIS B CORE IgM (test code = 4644) NON-REACTIVE NON-REACTIVE HEPATITIS B SURF AG (test code = 2739) NON-REACTIVE NON-REACTIVE HEPATITIS C ANTIBODY (test code = 4675) NON-REACTIVE NON-REACTIVE INTERPRETATION HEPATITIS A: (test code = 2552) (NOTE) Hepatitis A sero logy shows no evidence of acute hepatitis A. INTERPRETATION HEPATITIS B: (test code = 61257) (NOTE) Hepatitis B sero logy shows no evidence of acute hepatitis B andno indication of exposure to hepatitis B virus in the previous jer eight months. INTERPRETATION HEPATITIS C: (test code = 79705) (NOTE) Hepatitis C sero logy shows no evidence of exposure to hepatitisC virus at this time. It can take up to 12 months after exposure tothe hepatitis C virus for antibodies to become detectable in the blood in certain patients. UNLESS OTHERWISE INDICATED, ALL TESTING PERFORMED [facility] [address] [place] [id number] RN MANAGED CARE: RY PURVIS M.D. CLIA NUMBER [id number] [facility] [address]. [id number] CBC W/AUTO DIFF WITH [id number] 03:42:47* Test Item Value Reference Range Interpretation [...] = 1065) 0.0 /100 WBC'S See_Comment [Automated messa ge] The system which generated this result [...] 0.00-0.10 ABS NUCLEATED RBCS (test code = 08320) 0.00 K/UL 0.00-0.11 Notes Date/Time Note Provider Source 2024-11-14 19:04:06 Pt given printed and verbal discharge instructions regarding closed displaced fracture of head of right radius. Prescriptions provided. Discussed tramadol side affects and to avoid driving/operating machinery/or engaging in activities requiring alertness while taking. Pt verbalized understanding of instructions, pt awake alert oriented, resp reg unlabored, skin w/d, color appropriate for race, moves all ext well, pt encouraged to follow up with pcp. Advised to seek medical attention for new/prolonged/worsening of symptoms. No adverse reaction to meds given in ER noted upon discharge. Awake, alert oriented, resp reg unlabored, skin w/d, pt leaving amb with steady gait, in no apparent distress. Sean Desouza RN [facility] 2024-11-14 16:59:18 Slip and fall occurred 20 min ago. Patient states he injured his R elbow. Khushbu Smith RN [facility] 2022-11-14 14:42:01 Formatting of this n ote [...] within 360 days To be filled at: [id number] - [place], [place] - [address] Recent Visits Date Type Provider Dept 04/10/22 Office Visit Sara OntiverosYOBANIP [facility] 10/24/21 Office Visit Miranda Ontiverosthia, [employer] [facility] 10/03/21 Office Visit Sara Ontiveros, [employer] [facility] Showing recent visits within past 540 days with a meds authorizing provider and meeting all other requirements Future Appointments No visits were found meeting these conditions. Showing future appointments within next 150 days with a meds authorizing provider and meeting all other requirements Bonita Frank LVN [facility] 2022-11-14 14:41:31 Formatting of this n [...] last 12 months To be filled at: [id number] - [place], [place] - [address] [facility] Recent Visits Date Type Provider Dept 04/10/22 Office Visit Rama YOBANI RuizP [facility] 10/24/21 Office Visit Rama Sara [employer] [facility] 10/03/21 Office Visit Rama Sara, [employer] [facility] Showing recent visits within past 540 days with a meds authorizing provider and meeting all other requirements Future Appointments No visits were found meeting these conditions. Showing future appointments within next 150 days with a meds authorizing provider and meeting all other requirements ody Frank LVN [facility]"
[2025-01-20] MEDS ORDERED: HYDROCODONE/APAP 7.5/325 MG TAB ONE ×2 (03:21→05:53)
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
[2025-01-20 09:03] VITALS: O2SAT 99
[2025-01-20 09:05] VITALS: BP 138/68; TEMP 98.3
== END 2025-01-20 07:20 | disposition home or self-care (01) ==
LOC: ER 03:03
DX: S02.2XXA Fracture of nasal bones, initial encounter for closed fracture (principal); Y00.XXXA Assault by blunt object, initial encounter
CPT/HCPCS: 70450; 70486; 72125; 76377; 99284